=== PATIENT | female | born 1985 | race Caucasian/White ===

== ENCOUNTER 2019-12-22 11:27 | Outpatient (CLI) | payer OTHER, SELFPAY ==
--- NOTE | ~2019-12-22 | XR_ITS ---
XR chest 2V DATE: 12/22/2019 11:57 INDICATION: Shortness of breath TECHNIQUE: PA and lateral views COMPARISON: 03/21/2017 PA chest FINDINGS: Normal heart size. No hilar or mediastinal enlargement. No pulmonary infiltrate or consolid ation, pleural effusion or pulmonary vascular congestion or pneumothorax. IMPRESSION: Negative Reviewed, dictated and finalized at location A. IMPRESSION: Negative
[2019-12-22 12:29] LABS: Add Urine Microscopic? NO; Appearance Urine Clear (Clear); Bilirubin Urine Negative (Negative); Blood Urine Negative (Negative); Color Urine Colorless (Yellow); Glucose Urine UA Negative (Negative); Ketones Urine Negative (Negative); Leukocyte Esterase Ur Negative LEU/UL (Negative); Nitrate Urine Negative (Negative); Protein Urine Negative (Negative); Specific Grav Ur 1.006 (1.001-1.035); Urobilinogen Urine Negative mg/dL (<2.0)
[2019-12-22 12:35] LABS: Basophils Absolute Auto 0.1 K/mm3 (0.0-0.1); Basophils Percent Auto 0.7 % (0.2-1.2); Eosinophils Absolute Auto 0.3 K/mm3 (0-0.3); Eosinophils Percent Auto 3.2 % (0-4.4); Hematocrit 37.6 % (37.0-47.0); Hemoglobin 11.2 g/dL (12.0-15.0); Immature Granulocyte Absolute 0.03 K/mm3 (0.00-0.031); Immature Granulocyte Percent A 0.3 % (0-0.5); Lymphocytes Absolute Auto 1.99 K/mm3 (0.9-3.2); Lymphocytes Percent Auto 22.6 % (18.3-44.2); Mean Corpuscular HGB Conc 29.8 g/dl (32-36); Mean Corpuscular Hemoglobin 22.7 pg (26-34); Mean Corpuscular Volume 76.3 fl (80-100); Mean Platelet Volume 8.9 fl (7.4-10.4); Monocytes Absolute Auto 0.5 K/mm3 (0.1-0.6); Neutrophils Absolute Auto 5.9 K/mm3 (1.3-6.7); Neutrophils Percent Auto 67.2 % (45.5-73.1); Platelet Count Result 446 k/mm3 (150-375); Red Blood Count 4.93 M/mm3 (4.2-5.4); White Blood Count 8.8 K/mm3 (4.5-10.0)
[2019-12-22 12:39] LABS: Bacteria Urine Trace /hpf; RBC Urine 0-2 /hpf (0-2); Squamous Epithelial Cell Urine Few /hpf (Few); WBC Urine 0-3 /hpf
[2019-12-22 12:41] LABS: Alanine Aminotransferase 21 U/L (4-35); Albumin Level 4.7 g/dL (3.5-5.1); Alkaline Phosphatase 58 U/L (38-126); Anion Gap 9 mmol/L (8-16); Aspartate Amino Transferase 22 U/L (14-36); Bilirubin,Total 0.4 mg/dL (0.2-1.3); Blood Urea Nitrogen 15 mg/dL (7-17); Calcium 9.2 mg/dL (8.4-10.2); Carbon Dioxide 26 mmol/L (22-30); Chloride 101 mmol/L (98-107); Cholesterol 280 mg/dL (0-200); Estimated Glomerular Filt Rate > 60; Glucose 94 mg/dL (65-105); HDL Direct 82 mg/dL; Magnesium 1.7 mg/dL (1.6-2.3); Potassium 4.3 mmol/L (3.4-5.0); Sodium 136 mmol/L (137-145); Triglycerides 97 mg/dL (<150)
[2019-12-22 12:42] LABS: Hemoglobin A1C 4.6 % (<5.7)
[2019-12-22 12:53] LABS: LDL Cholesterol Direct 156 mg/dL
[2019-12-22 13:20] LABS: Vitamin D 25 Hydroxy 30.8 ng/mL
[2019-12-22 13:53] LABS: Folic Acid > 20.0 ng/mL (2.76->20)
== END 2019-12-22 11:28 | disposition home or self-care (01) ==
LOC: ANHIMG 11:38
PROVIDERS: PCP Family Medicine; Visit Provider Family Medicine
DX: Z00.00 Encounter for general adult medical examination without abnormal findings (principal); E66.9 Obesity, unspecified; Z13.9 Encounter for screening, unspecified; M79.7 Fibromyalgia; Z87.891 Personal history of nicotine dependence
CPT/HCPCS: 36415; 71046; 80053; 80061; 81003; 82306; 82607; 82746; 83036; 83735; 84443; 85025

== ENCOUNTER 2020-01-25 11:57 | Outpatient (CLI) | payer OTHER, SELFPAY ==
[2020-01-25 12:35] LABS: Hematocrit 36.7 % (37.0-47.0); Hemoglobin 11.8 g/dL (12.0-15.0)
== END 2020-01-25 11:58 | disposition home or self-care (01) ==
PROVIDERS: PCP Family Medicine
DX: D64.9 Anemia, unspecified (principal)
CPT/HCPCS: 36415; 85014; 85018

== ENCOUNTER 2020-03-14 07:05 | Outpatient (NON) | payer OTHER, SELFPAY ==
[2020-03-14 18:30] LABS: SARS-CoV-2 RNA PCR Negative
== END 2020-03-14 07:06 ==
PROVIDERS: PCP Family Medicine; Visit Provider Family Medicine
DX: R50.9 Fever, unspecified (principal); Z20.828 Contact with and (suspected) exposure to other viral communicable diseases
CPT/HCPCS: 87635; C9803; U0003

== ENCOUNTER 2020-04-01 13:59 | Outpatient (CLI) | payer OTHER, SELFPAY ==
[2020-04-01 15:00] LABS: Basophils Absolute Auto 0.1 K/mm3 (0.0-0.1); Basophils Percent Auto 0.8 % (0.2-1.2); Eosinophils Absolute Auto 0.1 K/mm3 (0-0.3); Eosinophils Percent Auto 1.6 % (0-4.4); Hematocrit 41.1 % (37.0-47.0); Hemoglobin 13.1 g/dL (12.0-15.0); Immature Granulocyte Absolute 0.02 K/mm3 (0.00-0.031); Immature Granulocyte Percent A 0.2 % (0-0.5); Immature Reticulocyte Fraction 22.2 % (3.0-15.9); Lymphocytes Absolute Auto 2.34 K/mm3 (0.9-3.2); Lymphocytes Percent Auto 26.5 % (18.3-44.2); Mean Corpuscular HGB Conc 31.9 g/dl (32-36); Mean Corpuscular Hemoglobin 25.7 pg (26-34); Mean Corpuscular Volume 80.6 fl (80-100); Mean Platelet Volume 9.4 fl (7.4-10.4); Monocytes Absolute Auto 0.4 K/mm3 (0.1-0.6); Monocytes Percent Auto 4.6 % (2.6-8.5); Neutrophils Absolute Auto 5.9 K/mm3 (1.3-6.7); Neutrophils Percent Auto 66.3 % (45.5-73.1); Nucleated Red Blood Cells Perc 0.2 % (0.0-0.2); Platelet Count Result 370 k/mm3 (150-375); Red Cell Distribution Width 12.8 % (11.5-14.5); Reticulocyte Hemoglobin Conten 29.4 pg (28.2-35.7); Reticulocyte Percent 1.56 % (0.7-4.3); Reticulocytes Absolute 0.08 B/L (32.2-175.7); White Blood Count 8.8 K/mm3 (4.5-10.0)
[2020-04-01 15:10] LABS: Alanine Aminotransferase 12 U/L (4-35); Albumin Level 4.8 g/dL (3.5-5.1); Alkaline Phosphatase 72 U/L (38-126); Anion Gap 10 mmol/L (8-16); Aspartate Amino Transferase 21 U/L (14-36); Bilirubin,Total 0.5 mg/dL (0.2-1.3); Blood Urea Nitrogen 9 mg/dL (7-17); Calcium 9.9 mg/dL (8.4-10.2); Carbon Dioxide 27 mmol/L (22-30); Chloride 101 mmol/L (98-107); Cholesterol 193 mg/dL (0-200); Estimated Glomerular Filt Rate > 60; Glucose 109 mg/dL (65-105); HDL Direct 60 mg/dL; Magnesium 1.9 mg/dL (1.6-2.3); Potassium 4.3 mmol/L (3.4-5.0); Sodium 138 mmol/L (137-145); Triglycerides 70 mg/dL (<150)
[2020-04-01 15:21] LABS: LDL Cholesterol Direct 101 mg/dL; Transferrin 322 mg/dL (206-381)
[2020-04-01 15:26] LABS: Iron 24 ug/dL (37-170)
[2020-04-04 11:24] LABS: Methylmalonic Acid 149 nmol/L (87-318)
[2020-04-04 12:49] LABS: Homocysteine 13.6 umol/L (<10.4)
[2020-04-04 18:18] LABS: Soluble Transferrin Receptor 3.04 mg/L (0.76-1.76)
== END 2020-04-01 14:00 | disposition home or self-care (01) ==
PROVIDERS: PCP Family Medicine; Referring Provider Obstetrics & Gynecology Gynecology
DX: E78.5 Hyperlipidemia, unspecified (principal); D50.8 Other iron deficiency anemias
CPT/HCPCS: 36415; 80053; 80061; 82607; 82728; 83090; 83516; 83540; 83735; 83921; 84238; 84466; 85025; 85046

== ENCOUNTER 2020-04-14 11:54 | Emergency (ER) | payer OTHER, SELFPAY ==
[2020-04-14] VITALS (14 sets, daily range): BP systolic 122–147; BP diastolic 82–114; PULSE 77–107; RESP 13–20; TEMP 36.4; O2SAT 97–100
--- NOTE | ~2020-04-14 | CT_ITS ---
EXAMINATION: CT brain wo con DATE: 04/14/2020 13:41 INDICATION: Confusion. Right-sided body spasms. TECHNIQUE: Computed tomography (CT) of the head was performed without intravenous contrast. Sagittal and coronal reconstructions were performed. The mA was adjusted according to patient size. Iterative reconstruction technique was employed. The dose-length product was 605.33 mGy-cm. COMPARISON: head CT dated 01/25/2012 and MRI dated 02/09/2015 FINDINGS: No acute intracranial hemorrhage, acute infarction or abnormal extra axial fluid collection. Ventricl es are normal and symmetric. No mass/mass effect. Mild mucosal thickening the posterior right ethmoid air cells. The orbitsoutside and mastoid air cells are normal. IMPRESSION: 1. Normal brain. Reviewed, dictated and finalized at location A. LATOR CONSTRUCTOR IMPRESSION: 1. Normal brain.
--- NOTE | ~2020-04-14 | XR_ITS ---
EXAMINATION: XR chest 1V portable DATE: 04/14/2020 13:45 INDICATION: Weakness, confusion, right-sided spasms. TECHNIQUE: frontal view of the chest was obtained. COMPARISON: Chest radiograph dated 12/22/2019 FINDINGS: The lungs remain clear with no focal airspace opacities, pulmonary edema, pleural effusion or pneumot horax. The cardiomediastinal silhouette is normal. Visualized bones and soft tissues are unremarkable . IMPRESSION: 1. Normal chest radiograph. Reviewed, dictated and finalized at location A. OMETER TESTER IMPRESSION: 1. Normal chest radiograph.
--- NOTE | 2020-04-14 12:22 | ECG_ITS ---
Measurements Intervals [place] Rate: 99 P: 59 NH: 134 QRS: -18 QRSD: 93 T: 51 QT: 348 QTc: 448 Interpretive Statements SINUS RHYTHM MINIMAL Q WAVES- INFERIOR LEADS BORDERLINE T WAVE ABNORMALITY- ANTERIOR LEADS BORDERLINE ECG Electronically Signed On 04-14-2020 16:28:22 COMPOSITION PROFESSOR by Jeff Herron D.O.
--- NOTE | 2020-04-14 13:34 | ED.GENADULT ---
HPI - General Adult General Chief complaint: Unspecified Stated complaint: right sided spasms Time Seen by Provider: 04/14/20 12:17 Source: patient and family Mode of arrival: ambulatory Limitations: no limitations and altered mental status History of Present Illness HPI narrative: 34 years old white female complaining of vision abnormality including floating black spots across the visual field mainly on the left side, Sudden onset of cramps of the right side of her body and inability to move it, Loss of balance and confusion, Patient feels that she is out of it and generally weak, Patient cannot remember things. The above symptoms started last night and been intermittent since. Currently patient crying because she does not know what is going on and feeling confused. Related Data Home Medications Medication Instructions Recorded Confirmed acetaminophen [Tylenol Extra 04/14/20 Strength] atorvastatin 04/14/20 04/14/20 docusate sodium [Colace] PO 04/14/20 drospirenone (contraceptive) 04/14/20 [Slynd] duloxetine mg PO 04/14/20 lamotrigine 04/14/20 omeprazole 04/14/20 ondansetron 04/14/20 Allergies Allergy/AdvReac Type Severity Reaction Status Date / Time adhesive tape Allergy Mild RASH Verified 04/14/20 12:26 atropine Allergy Unknown Nausea Verified 04/14/20 12:26 dexamethasone Allergy Unknown Nausea Verified 04/14/20 12:26 meperidine Allergy Unknown Nausea Verified 04/14/20 12:26 methohexital [Brevital] Allergy Unknown y Verified 04/14/20 12:26 Review of Systems Review of Systems: Narrative: CONSTITUTIONAL: Denies fever, chills, or sweats. EYES: Denies visual changes, redness, or discharge. ENT: Denies rhinorrhea, congestion, sore throat, or otalgia. CARDIOVASCULAR: Denies chest pain, palpitations, or edema. RESPIRATORY: Denies cough or dyspnea. GASTROINTESTINAL: Denies abdominal pain, nausea, vomiting, or diarrhea. GENITOURINARY: Denies dysuria or hematuria. SKIN: Denies rash or itching. MUSCULOSKELETAL: Denies back pain, joint pain, or myalgia. NEUROLOGIC: Occipital headache with weakness PSYCHIATRIC: Denies anxiety or depression. [facility] Family History Family History Father Hypertension Family history of diabetes mellitus in first degree relative Mother Hypertension Family history of diabetes mellitus in first degree relative Social History Social History Gender identity (if verbalized by the patient): Female Exam Narrative: Exam Narrative: General appearance: Well-developed, well-nourished, patient's at the bedside Skin: Normal color Head: Normocephalic, nontraumatic Eyes: Clear conjunctiva, frequent blinking of the eyelids bilaterally ENT: Oropharynx normal, ears normal, nose normal Neck: Supple, nontender Chest and respiratory: Airway patent, no respiratory distress, no accessory muscle use Heart: Tachycardia Abdomen: Soft, nontender, no organomegaly, quiet bowel sounds Vascular: Normal peripheral pulses, normal capillary refill. Musculoskeletal: Normal range of motion, nontender back Neurologic: Alert and oriented ?3, IMPLEMENTATION SPECIALIST is normal as tested, no gross motor deficit Course Course Emergency Course: Stable Reevaluation(s) Reevaluation #1: Patient feeling much better, back to her normal status. Is able to stand up and walk around without any complaint. Date: 04/14/20 Time: 18:30 Vital Signs Vital signs: Vital Signs Temperature 36.4 C 04/14/20 12:10 Pulse Rate 102 H 04/14/20 12:10 Respiratory Rate 18 04/14/20 12:10 Blood Pressure 144/101 H 04/14/20 12:10 Pulse Oximetry 100 01
[2020-04-14 14:30] LABS: Add Urine Microscopic? YES; Appearance Urine Cloudy (Clear); Bilirubin Urine Negative (Negative); Blood Urine 3+ (Negative); Color Urine Yellow (Yellow); Glucose Urine UA Negative (Negative); Ketones Urine Negative (Negative); Leukocyte Esterase Ur Trace LEU/UL (Negative); Nitrate Urine Negative (Negative); Protein Urine 2+ mg/dL (Negative); RBC Urine >75 /hpf (0-2); Specific Grav Ur 1.025 (1.001-1.035); Squamous Epithelial Cell Urine Moderate /hpf (Few); Urobilinogen Urine Negative mg/dL (<2.0)
[2020-04-14 14:33] LABS: Basophils Absolute Auto 0.1 K/mm3 (0.0-0.1); Basophils Percent Auto 0.5 % (0.2-1.2); Eosinophils Absolute Auto 0.2 K/mm3 (0-0.3); Eosinophils Percent Auto 2.2 % (0-4.4); Hemoglobin 13.3 g/dL (12.0-15.0); Immature Granulocyte Absolute 0.03 K/mm3 (0.00-0.031); Immature Granulocyte Percent A 0.3 % (0-0.5); Lymphocytes Absolute Auto 1.74 K/mm3 (0.9-3.2); Lymphocytes Percent Auto 18.8 % (18.3-44.2); Mean Corpuscular HGB Conc 31.7 g/dl (32-36); Mean Corpuscular Hemoglobin 25.6 pg (26-34); Mean Corpuscular Volume 80.9 fl (80-100); Mean Platelet Volume 9.5 fl (7.4-10.4); Monocytes Absolute Auto 0.5 K/mm3 (0.1-0.6); Monocytes Percent Auto 4.9 % (2.6-8.5); Neutrophils Absolute Auto 6.8 K/mm3 (1.3-6.7); Neutrophils Percent Auto 73.3 % (45.5-73.1); Platelet Count Result 413 k/mm3 (150-375); Red Blood Count 5.19 M/mm3 (4.2-5.4); Red Cell Distribution Width 13.2 % (11.5-14.5); White Blood Count 9.2 K/mm3 (4.5-10.0)
[2020-04-14 14:44] LABS: INR 0.9; Partial Thromboplastin Time 30.3 SECONDS (22.3-36.8); Prothrombin Time 12.9 Seconds (11.1-14.7)
[2020-04-14 14:54] LABS: D Dimer 0.27 ug/mL (<0.48)
[2020-04-14 15:19] LABS: Alanine Aminotransferase 17 U/L (4-35); Albumin Level 4.7 g/dL (3.5-5.1); Alkaline Phosphatase 83 U/L (38-126); Anion Gap 9 mmol/L (8-16); Aspartate Amino Transferase 25 U/L (14-36); Bilirubin,Total 0.5 mg/dL (0.2-1.3); Blood Urea Nitrogen 14 mg/dL (7-17); Calcium 9.9 mg/dL (8.4-10.2); Carbon Dioxide 27 mmol/L (22-30); Chloride 102 mmol/L (98-107); Estimated CRCL calculation 92 ml/min; Estimated Glomerular Filt Rate > 60; Glucose 97 mg/dL (65-105); Potassium 4.3 mmol/L (3.4-5.0); Sodium 138 mmol/L (137-145)
[2020-04-14 15:19] LABS: Amphetamine Screen Urine Negative (Negative); Barbiturate Screen Urine Negative (Negative); Benzodiazepines Screen Urine Negative (Negative); Cannabinoid Screen Urine Positive (Negative); Cocaine Screen Urine Negative (Negative); Methadone Screen Urine Negative (Negative); Opiate Screen Urine Negative (Negative); Phencyclidine Screen Urine Negative (Negative)
[2020-04-14 15:30] LABS: Troponin I < 0.012 ng/mL (0.000-0.034)
[2020-04-14 16:09] LABS: Creatine Kinase 107 U/L (30-135)
[2020-04-14] MEDS: ONDANSETRON INJ 4 MG/2 ML VIAL IV PUSH (16:10)
[2020-04-14] MEDS: LORazepam INJ (*CRX) 2 MG/ML VIAL 1 MG IV PUSH (16:12)
[2020-04-14] MEDS: HYDROmorphone HCL INJ (*CRX) 1 MG/ML SYR 0.5 MG IV PUSH (16:15)
== END 2020-04-14 18:36 | disposition home or self-care (01) ==
PROVIDERS: Emergency Provider Emergency Medicine; PCP Family Medicine
DX: G43.909 Migraine, unspecified, not intractable, without status migrainosus (principal); F12.10 Cannabis abuse, uncomplicated; R94.31 Abnormal electrocardiogram [ECG] [EKG]
CPT/HCPCS: 36415; 70450; 71045; 80053; 80307; 81001; 81025; 82550; 84484; 85025; 85380; 85610; 85730; 87086; 87088; 93005; 96374; 96375; 99284; J1170; J2060; J2405

== ENCOUNTER 2020-09-06 11:10 | Outpatient (CLI) | payer OTHER, SELFPAY ==
[2020-09-06 11:49] LABS: Hemoglobin A1C 5.8 % (<5.7)
[2020-09-06 12:02] LABS: Beta HCG Quantitative < 2.39 mIU/ML
[2020-09-08 20:37] LABS: Prolactin 8.8 ng/mL (***)
[2020-09-09 05:19] LABS: Insulin Level Total 9.4 uIU/mL (<=19.6)
[2020-09-09 10:06] LABS: DHEA-Sulfate 290 mcg/dL (23-266)
[2020-09-09 13:05] LABS: Testosterone Total 32 ng/dL (2-45)
== END 2020-09-06 11:11 | disposition home or self-care (01) ==
PROVIDERS: PCP Family Medicine; Visit Provider Obstetrics & Gynecology Gynecology
DX: N64.52 Nipple discharge (principal); N91.2 Amenorrhea, unspecified; L63.9 Alopecia areata, unspecified
CPT/HCPCS: 36415; 82627; 83036; 83498; 83525; 84146; 84403; 84443; 84702

== ENCOUNTER 2020-09-24 14:20 | Outpatient (CLI) | payer OTHER, SELFPAY ==
[2020-09-24 14:59] LABS: Cholesterol 259 mg/dL (0-200); HDL Direct 58 mg/dL; Triglycerides 129 mg/dL (<150)
[2020-09-24 15:11] LABS: LDL Cholesterol Direct 132 mg/dL
[2020-09-24 16:01] LABS: Free T4 Free Thyroxine 0.95 ng/mL (0.78-2.19)
== END 2020-09-24 14:21 | disposition home or self-care (01) ==
PROVIDERS: PCP Family Medicine; Referring Provider Obstetrics & Gynecology Gynecology; Visit Provider Family Medicine
DX: E78.5 Hyperlipidemia, unspecified (principal); N64.3 Galactorrhea not associated with childbirth
CPT/HCPCS: 36415; 80061; 84439

== ENCOUNTER 2020-10-22 08:02 | Outpatient (CLI) | payer OTHER, SELFPAY | END 2020-10-22 08:03 | disposition home or self-care (01) | LOC: ANHAUDIO 08:03 | PROVIDERS: PCP Family Medicine; Visit Provider Nurse Practitioner Family | DX: R42 Dizziness and giddiness (principal) | CPT/HCPCS: 92537; 92540; 92546; 92557; 92567 ==

== ENCOUNTER 2020-11-09 12:29 | Emergency (ER) | payer OTHER, SELFPAY ==
[2020-11-09 12:40] VITALS: BP 126/91; PULSE 97; RESP 20; TEMP 36.4; O2SAT 99
--- NOTE | 2020-11-09 12:54 | ED.GENADULT ---
HPI - General Adult General Chief complaint: Skin/Abscess/Foreign Body Stated complaint: Abscess on Lt breast Source: patient Mode of arrival: ambulatory Limitations: no limitations History of Present Illness HPI narrative: Pleasant 35 y/o female. PMHx includes MDD, GERD, HLD. Presents to [facility] today with acute complaints of redness and abscess located to LT breast. Pt reports to have initially noted the area approximately 1 week ago. She has since experienced increased warmth and pain to site. Client adds that area had spontaneously ruptured last HS, and was draining 'yellow' discharge. She has been seen by her OPERATIONAL COMMUNICATION CHIEF earlier in the week and told to monitor the area, but now area is 'much worse'. No fever, chills. No global breast pain or swelling. No nipple discharge, discoloration, or inversion. There has been no breast trauma relayed. No additional areas of integumentary involvement. She is not actively breast feeding. Related Data Home Medications Medication Instructions Recorded Confirmed drospirenone (contraceptive) 04/14/20 [Slynd] duloxetine mg PO 04/14/20 ondansetron 04/14/20 cyclobenzaprine 10 mg PO Q12H PRN 11/09/20 11/09/20 lamotrigine 200 mg PO DAILY 11/09/20 11/09/20 meloxicam 7.5 mg PO DAILY PRN 11/09/20 11/09/20 metoprolol succinate 50 mg PO DAILY 11/09/20 11/09/20 Allergies Allergy/AdvReac Type Severity Reaction Status Date / Time adhesive tape Allergy Mild RASH Verified 11/09/20 12:55 methohexital [Brevital] Allergy Unknown y Verified 04/14/20 12:26 atropine AdvReac Unknown Nausea Verified 11/09/20 12:55 dexamethasone AdvReac Unknown Nausea Verified 11/09/20 12:55 meperidine AdvReac Unknown Nausea Verified 11/09/20 12:55 Review of Systems Review of Systems: CONSTITUTIONAL: Denies fever, chills, sweats. EYES: Denies visual changes, redness, discharge. ENT: Denies rhinorrhea, congestion, sore throat, otalgia. CARDIOVASCULAR: Denies chest pain, palpitations, edema. RESPIRATORY: Denies dyspnea, wheezing, cough GASTROINTESTINAL: Denies abdominal pain, nausea, vomiting, diarrhea. GENITOURINARY: Denies dysuria, hematuria, abnormal discharge SKIN: Redness and abscess LT breast. MUSCULOSKELETAL: Denies acute back pain, joint pain, or myalgia. NEUROLOGIC: Denies numbness, or focal weakness. PSYCHIATRIC: Denies anxiety or depression. All systems reviewed & are unremarkable except as noted in HPI and below PMFSH Family History Family History Father Hypertension Family history of diabetes mellitus in first degree relative Mother Hypertension Family history of diabetes mellitus in first degree relative Social History Social History Gender identity (if verbalized by the patient): Female Exam Narrative: GENERAL: This is a well-nourished, well-developed patient, in no apparent distress. HEAD: normocephalic, atraumatic. EYES: Sclera clear/white. EARS: External ears normal. NOSE: External nose normal. THROAT: Mucous membranes moist. NECK: Neck supple, non-tender without lymphadenopathy, masses or thyromegaly. CARDIOVASCULAR: Regular rate and rhythm without murmurs, gallops, or rubs. RESPIRATORY: Clear to auscultation. Breath sounds equal bilaterally. No wheezes, rales, or rhonchi. GASTROINTESTINAL: Abdomen soft, non-tender, nondistended. SKIN: 3 cm area of left breast erythema and minimal yellow dries discharge. This area is located along the 12 0'clock position, at the upper left areola line. There is mild warmth. No fluctuance. Nipple is of normal color, I do not appreciate nipple discharge or inversion. Client exhibits appropriate sensory response to area. Remainder of integumentary exam is negative. NEURO: No focal neurologic deficits. Course Course Emergency Course: -Physical exam findings consistent with LT breast cellulitic changes, 12 O'Clock po
== END 2020-11-09 12:58 | disposition home or self-care (01) ==
PROVIDERS: Emergency Provider Nurse Practitioner Adult Health; PCP Family Medicine
DX: N61.0 Mastitis without abscess (principal); K21.9 Gastro-esophageal reflux disease without esophagitis; E78.5 Hyperlipidemia, unspecified; F32.9 Major depressive disorder, single episode, unspecified
CPT/HCPCS: 99213; G0463

== ENCOUNTER 2021-06-09 09:12 | Outpatient (CLI) | payer OTHER, SELFPAY ==
[2021-06-09 09:52] LABS: Hematocrit 41.2 % (37.0-47.0); Hemoglobin 12.5 g/dL (12.0-15.0); Immature Reticulocyte Fraction 30.2 % (3.0-15.9); Mean Corpuscular HGB Conc 30.3 g/dl (32-36); Mean Corpuscular Hemoglobin 23.9 pg (26-34); Mean Corpuscular Volume 78.6 fl (80-100); Platelet Count Result 437 k/mm3 (150-375); Red Blood Count 5.24 M/mm3 (4.2-5.4); Red Cell Distribution Width 16.1 % (11.5-14.5); Reticulocyte Hemoglobin Conten 28.7 pg (28.2-35.7); Reticulocyte Percent 1.99 % (0.7-4.3); White Blood Count 11.6 K/mm3 (4.5-10.0)
[2021-06-09 10:04] LABS: Alanine Aminotransferase 24 U/L (4-35); Albumin Level 4.8 g/dL (3.5-5.1); Alkaline Phosphatase 88 U/L (38-126); Anion Gap 9 mmol/L (8-16); Aspartate Amino Transferase 24 U/L (14-36); Bilirubin,Total 0.5 mg/dL (0.2-1.3); Blood Urea Nitrogen 11 mg/dL (7-17); Calcium 9.1 mg/dL (8.4-10.2); Carbon Dioxide 22 mmol/L (22-30); Chloride 104 mmol/L (98-107); Cholesterol 280 mg/dL (0-200); Estimated Glomerular Filt Rate > 60; Glucose 126 mg/dL (65-110); HDL Direct 47 mg/dL; Potassium 4.2 mmol/L (3.4-5.0); Sodium 135 mmol/L (137-145); Triglycerides 158 mg/dL (<150)
[2021-06-09 10:16] LABS: Hemoglobin A1C 5.6 % (<5.7); LDL Cholesterol Direct 177 mg/dL
[2021-06-09 10:28] LABS: Iron 37 ug/dL (37-170)
[2021-06-09 10:34] LABS: Thyroid Stimulating Hormone 0.741 uIU/mL (0.465-4.680)
[2021-06-09 10:36] LABS: Cortisol Random 0.95 ug/dL
[2021-06-09 10:37] LABS: Percent Iron Saturation 9 % (20-50)
[2021-06-09 11:10] LABS: Folic Acid 4.3 ng/mL (2.76->20)
[2021-06-12 03:31] LABS: Insulin Level Total 19.9 uIU/mL (<=19.6)
[2021-06-12 04:16] LABS: FSH 6.5 mIU/mL (***); LH 7.6 mIU/mL (***); Progesterone 0.5 ng/mL (***); Triiodothyronine T3 Free 2.4 pg/mL (2.3-4.2)
[2021-06-12 13:48] LABS: Thyroid Stimulating Immunoglob <89 % baseline (<140)
[2021-06-13 04:49] LABS: Thyroid Peroxidase Antibodies <1 IU/mL (<9)
[2021-06-13 17:25] LABS: Testosterone Free 4.2 pg/mL (0.1-6.4); Testosterone Total 27 ng/dL (2-45)
[2021-06-15 14:46] LABS: Estradiol, Ultrasensitive 152 pg/mL
== END 2021-06-09 09:13 | disposition home or self-care (01) ==
LOC: ANHLAB 09:14
PROVIDERS: PCP Family Medicine; Visit Provider Internal Medicine Endocrinology, Diabetes & Metabolism
DX: R63.5 Abnormal weight gain (principal); E03.9 Hypothyroidism, unspecified; R53.83 Other fatigue; N92.6 Irregular menstruation, unspecified; R73.03 Prediabetes
CPT/HCPCS: 36415; 80053; 80061; 82533; 82607; 82670; 82728; 82746; 83001; 83002; 83036; 83525; 83540; 83550; 84144; 84146; 84402; 84403; 84439; 84443; 84445; 84481; 85027; 85046; 86376

== ENCOUNTER 2021-06-12 10:14 | Outpatient (CLI) | payer OTHER, SELFPAY ==
--- NOTE | ~2021-06-12 | US_ITS ---
EXAMINATION: US thyroid EXAM DATE: 06/12/2021 10:45 INDICATION: Hypothyroidism. TECHNIQUE: Multiple grayscale and Doppler images of the thyroid were obtained (by a technologist who performed the scan) and subsequently reviewed. Individual nodules and recommendations may be reporte d in accordance with TI-RADS system as designated by the 2017 ACR White Paper TI-RADS committee. The re is no prior study for comparison. FINDINGS: Right thyroid lobe measures 4.9 x 1.4 x 1.5 cm, the left measuring 3.9 x 1.4 x 1.3 cm. There is homog eneous thyroid echogenicity. Dimensions within expected limits. No focal nodule identified. IMPRESSION: 1. Unremarkable thyroid ultrasound exam. Reviewed, dictated and finalized at location B. R SAMPLER
== END 2021-06-12 10:15 | disposition home or self-care (01) ==
PROVIDERS: PCP Family Medicine; Visit Provider Internal Medicine Endocrinology, Diabetes & Metabolism
DX: E03.9 Hypothyroidism, unspecified (principal)
CPT/HCPCS: 76536

== ENCOUNTER 2021-10-03 14:09 | Outpatient (CLI) | payer OTHER, SELFPAY ==
--- NOTE | 2021-10-03 | ECG_ITS ---
Measurements Intervals [place] Rate: 72 P: 37 DE: 151 QRS: 9 QRSD: 84 T: 1 QT: 380 QTc: 417 Interpretive Statements SINUS RHYTHM NORMAL ECG COMPARED TO ECG 04/14/2020 12:24:44 MINOR T-WAVE ABNORMALITY IS NOW RESOLVED Electronically Signed On 10-03-2021 16:56:08 CDT by Matthew Figueroa M.D.
--- NOTE | ~2021-10-03 | XR_ITS ---
EXAMINATION: XR lumbar spine min 4V DATE: 10/03/2021 14:58 INDICATION: Back pain TECHNIQUE: Anteroposterior, lateral, and bilateral oblique views of the lumbar spine, and cone-down l ateral view of the lumbosacral junction were obtained. COMPARISON: None. FINDINGS: There is no fracture, dislocation, or subluxation. The vertebral body heights, alignment, a nd intervertebral disc spaces are normal. The paravertebral soft tissues are unremarkable. There is m ild facet osteoarthritis of the lower lumbar spine. IMPRESSION: 1. Mild lumbar spondylosis without acute findings. Reviewed, dictated and finalized at location F.
--- NOTE | ~2021-10-03 | XR_ITS ---
EXAMINATION: XR thoracic spine 3V DATE: 10/03/2021 14:58 INDICATION: Thoracic back pain TECHNIQUE: AP, lateral and lateral swimmer's views of the thoracic spine were obtained. COMPARISON: None. FINDINGS: There is no fracture, dislocation, or subluxation. The vertebral body heights, alignment, a nd intervertebral disc spaces are normal. The paravertebral soft tissues are unremarkable. IMPRESSION: 1. No acute osseous abnormality. Reviewed, dictated and finalized at location F.
[2021-10-03 15:49] LABS: Basophils Absolute Auto 0.1 K/mm3 (0.0-0.1); Basophils Percent Auto 0.6 % (0.2-1.2); Eosinophils Absolute Auto 0.3 K/mm3 (0-0.3); Eosinophils Percent Auto 3.5 % (0-4.4); Hematocrit 33.8 % (37.0-47.0); Hemoglobin 9.8 g/dL (12.0-15.0); Immature Granulocyte Absolute 0.03 K/mm3 (0.00-0.031); Immature Granulocyte Percent A 0.3 % (0-0.5); Lymphocytes Absolute Auto 2.48 K/mm3 (0.9-3.2); Lymphocytes Percent Auto 26.2 % (18.3-44.2); Mean Corpuscular Hemoglobin 21.4 pg (26-34); Mean Corpuscular Volume 73.6 fl (80-100); Mean Platelet Volume 9.2 fl (7.4-10.4); Monocytes Absolute Auto 0.5 K/mm3 (0.1-0.6); Monocytes Percent Auto 5.7 % (2.6-8.5); Neutrophils Percent Auto 63.7 % (45.5-73.1); Platelet Count Result 395 k/mm3 (150-375); Red Blood Count 4.59 M/mm3 (4.2-5.4); Red Cell Distribution Width 16.4 % (11.5-14.5); White Blood Count 9.5 K/mm3 (4.5-10.0)
[2021-10-03 15:55] LABS: Appearance Urine Clear (Clear); Bilirubin Urine Negative (Negative); Blood Urine 2+ (Negative); Glucose Urine UA Negative (Negative); Ketones Urine Negative (Negative); Leukocyte Esterase Ur Negative LEU/UL (Negative); Nitrate Urine Negative (Negative); Protein Urine Negative (Negative); Specific Grav Ur 1.015 (1.001-1.035); Urobilinogen Urine 0.2 mg/dL (<2.0)
[2021-10-03 16:03] LABS: Squamous Epithelial Cell Urine Few /hpf (Few); WBC Urine 0-3 /hpf
[2021-10-03 16:05] LABS: Add Urine Microscopic? YES; Color Urine Light Yellow (Yellow)
[2021-10-03 16:06] LABS: Alanine Aminotransferase 17 U/L (6-35); Albumin Level 4.5 g/dL (3.5-5.1); Alkaline Phosphatase 72 U/L (38-126); Anion Gap 6 mmol/L (8-16); Aspartate Amino Transferase 20 U/L (14-36); Bilirubin,Total 0.1 mg/dL (0.2-1.3); Blood Urea Nitrogen 11 mg/dL (7-17); Carbon Dioxide 26 mmol/L (22-30); Chloride 105 mmol/L (98-107); Cholesterol 233 mg/dL (0-200); Estimated Glomerular Filt Rate > 60; Glucose 92 mg/dL (65-110); HDL Direct 51 mg/dL; Potassium 4.4 mmol/L (3.4-5.0); Sodium 137 mmol/L (137-145); Triglycerides 125 mg/dL (<150)
[2021-10-03 16:13] LABS: Iron 22 ug/dL (37-170)
[2021-10-03 16:17] LABS: LDL Cholesterol Direct 134 mg/dL
[2021-10-03 16:20] LABS: Hypochromasia 1+ (NORMAL); Platelet Estimate Increased (Adequate)
[2021-10-03 16:21] LABS: Microcytosis 1+ (NORMAL); Ovalocytes 1+ (NORMAL)
[2021-10-03 16:23] LABS: Percent Iron Saturation 5 % (20-50)
[2021-10-03 16:34] LABS: Total Triiodothyronine (T3) 1.16 NG/ML (0.97-1.69)
[2021-10-03 16:35] LABS: Free T4 Free Thyroxine 0.93 ng/mL (0.78-2.19)
[2021-10-03 16:44] LABS: Hemoglobin A1C 5.7 % (<5.7)
[2021-10-03 16:57] LABS: Vitamin D 25 Hydroxy 31.6 ng/mL
[2021-10-03 17:10] LABS: Folic Acid 2.6 ng/mL (2.76->20)
== END 2021-10-03 14:10 | disposition home or self-care (01) ==
PROVIDERS: PCP Family Medicine; Visit Provider Internal Medicine Endocrinology, Diabetes & Metabolism
DX: Z00.00 Encounter for general adult medical examination without abnormal findings (principal); E03.9 Hypothyroidism, unspecified; D50.9 Iron deficiency anemia, unspecified; E53.8 Deficiency of other specified B group vitamins; E66.9 Obesity, unspecified; Z13.9 Encounter for screening, unspecified; R00.0 Tachycardia, unspecified; M54.50 Low back pain, unspecified; M47.896 Other spondylosis, lumbar region
CPT/HCPCS: 36415; 72072; 72110; 80053; 80061; 81001; 82306; 82607; 82746; 83036; 83540; 83550; 84439; 84443; 84480; 85025; 93005

== ENCOUNTER 2022-04-07 09:55 | Outpatient (CLI) | payer OTHER, SELFPAY ==
--- NOTE | ~2022-04-07 | NM_ITS ---
EXAM: NM gastric emptying study DATE: 04/07/2022 14:42 INDICATION: Upper abdominal pain, nausea, vomiting and early satiety TECHNIQUE: A gastric emptying study was performed using the methodology of Steve QIU, et al. J Nucl Med 2007; 48:568-572. The patient was given a meal consisting of 2 scrambled eggs labeled with 0.962 mCi Tc-99m sulfur colloid, 2 slices of toast, two packages of jam, and approximately 120 mL of water . Simultaneous anterior and posterior 1-min images of the abdomen were obtained with the patient supi ne at multiple time points over a total period of 4 hours. The geometric mean of anterior and posteri or views was determined, and the percentage retention was calculated for each time point. COMPARISON: None. FINDINGS: Gastric retention of the radiotracer-labeled meal was 84%, 59%, and 23% at the 1-hour, 2-hour, and 4- hour time points, respectively. With this technique, apparent rapid gastric emptying is suggested by <30% gastric retention at 1 hour. Delayed gastric emptying is defined by gastric retention of >90% at 1 hour, >60% retention at 2 hours, or >10% retention at 4 hours. IMPRESSION: 1. Delayed gastric emptying. Reviewed, dictated and finalized at location A. HOLOGY INSTRUCTOR
== END 2022-04-07 09:56 | disposition home or self-care (01) ==
LOC: ANHIMG 09:56
PROVIDERS: PCP Family Medicine; Visit Provider Nurse Practitioner
DX: K58.9 Irritable bowel syndrome, unspecified (principal); K21.9 Gastro-esophageal reflux disease without esophagitis; R10.10 Upper abdominal pain, unspecified; R11.2 Nausea with vomiting, unspecified; R68.81 Early satiety; K30 Functional dyspepsia
CPT/HCPCS: 78264; A9541

== ENCOUNTER 2022-06-30 00:45 | Day surgery (SDC) | payer OTHER, SELFPAY ==
[2022-04-28 10:55] VITALS: BMI 36.9
--- NOTE | 2022-06-22 13:43 | PC.NURSE ---
Confirmed new date and time for patients procedure. Patient stated she has no new medications or new medical hx.
[2022-06-30 11:41] VITALS: BP 141/99; PULSE 110; RESP 18; TEMP 36.6; O2SAT 98
[2022-06-30] MEDS: LACTATED RINGERS 1,000 ML 150 ML IV CONT (11:54)
--- NOTE | 2022-06-30 12:42 | WPDANESEPPF ---
Anes - Initial Pre Proc Eval Procedure: Operation Date: 06/30/22 13:00 Proposed Procedures p Esophagogastroduodenoscopy & Colonoscopy - Vinay Wu MD Date/Time: 06/30/22 12:42 Surgeon: Vinay Wu MD Pre Op Diagnosis: N&V GERD Early satiety, Colitis Patient Data Age: 37 Gender: F Height: 1.7 m Weight: 108.5 kg Last Vital Signs Temp 97.9 F 06/30/22 11:41 Pulse 110 H 06/30/22 11:41 Resp 18 06/30/22 11:41 BP 141/99 H 06/30/22 11:41 Pulse Ox 98 06/30/22 11:41 O2 Del Method Room Air 06/30/22 11:41 Allergies Allergy/AdvReac Type Severity Reaction Status Date / Time adhesive tape Allergy Mild RASH Verified 04/28/22 10:56 methohexital [Brevital] Allergy Unknown y Verified 04/28/22 10:56 Sulfa (Sulfonamide Allergy Rash Verified 06/30/22 11:39 Antibiotics) atropine AdvReac Unknown Nausea Verified 04/28/22 10:56 dexamethasone AdvReac Unknown Nausea Verified 04/28/22 10:56 meperidine AdvReac Unknown Nausea Verified 04/28/22 10:56 Home Medications Medication Instructions Recorded Confirmed Type ondansetron 4 mg disintegrating 4 mg PO Q6-8H PRN Nausea 04/14/20 06/22/22 History tablet metoprolol succinate 50 mg 50 mg PO DAILY 11/09/20 06/22/22 History tablet,extended release 24 hr dicyclomine 10 mg capsule 10 - 20 mg PO .every 6 hours PRN 03/12/22 06/22/22 Rx abdominal pain #120 caps metoclopramide HCl 10 mg tablet 10 mg PO Q6H #120 tabs 03/12/22 06/22/22 Rx (Reglan) pantoprazole 40 mg tablet,delayed 40 mg PO BID #60 tabs 03/12/22 06/22/22 Rx release levothyroxine 25 mcg tablet 25 mcg PO DAILY 04/28/22 06/22/22 History Patient hx anesthesia problems: none Family hx anesthesia problems: none Results Review: All pre-operative results and documents have been reviewed as part of the pre-operative evaluation. [facility] Past Medical History Medical History (Updated 03/12/22 @ 12:21 by Adriana Sterling APRN) Chronic pain Colitis Early satiety GERD (gastroesophageal reflux disease) IBS (irritable bowel syndrome) JOSE D (iron deficiency anemia) Marijuana abuse Nausea and vomiting Obesity Regurgitation of food Upper abdominal pain Surgical History Surgical History (Updated 03/12/22 @ 12:19 by Adriana Sterling APRN) History of repair of rectocele Family History Family History Father Hypertension Family history of diabetes mellitus in first degree relative Mother Hypertension Family history of diabetes mellitus in first degree relative Social History Social History Smoking status: Current every day smoker Tobacco type: cigarettes Substance use: current Substance use type: marijuana Last use: 2X weekly Living arrangements: with family Gender identity (if verbalized by the patient): Female Spiritual care concerns: No Anes - Eval Final PreProcedure Day of Procedure 06/30/22 12:42 Patient weight: obese Heart: regular rate and rhythm Lungs: clear to auscultation Airway: Mallampati scale class II Neurological: alert and oriented Last oral intake: >/= 8 hours ASA classification: III Emergent: no Anesthetic plan: proceed Anesthesia type and monitoring: general GIVS and standard monitoring Results Review: All pre-operative results and documents have been reviewed as part of the pre-operative evaluation. Informed Consent: The patient's anesthetic plan and its attendant risks and benefits were discussed with the patient/family/POA. Questions were solicited and answers provided to the satisfaction of the patient/family/POA.
--- NOTE | 2022-06-30 13:04 | PM.HPGS ---
History of Present Illness History of Present Illness Consent: Risks, benefits, and alternatives have been discussed and questions answered. Patient agrees to proceed with procedure. Chief complaint: N&V GERD Early satiety, Colitis Narrative: Nancy Liu is a 37 year old female with nausea for years but lately worse, also had abdominal pain several weeks ago, ER evaluation showed possible colitis in CT scan, she had egd/colonoscopy 2020 when had anemia Review of Systems Constitutional: Constitutional: Denies headache(s) and Denies weakness Eyes: Eyes: Denies blurry vision ENT: Reports Normal hearing present, Denies headache(s) and Denies neck pain Cardiovascular: Cardiovascular: Denies chest pain and Denies dyspnea Respiratory: Respiratory: Denies dyspnea Gastrointestinal: Gastrointestinal: Reports no additional gastrointestinal complaints Genitourinary: Genitourinary: Denies dysuria Musculoskeletal: Musculoskeletal: Denies neck pain Integumentary/Breasts: Skin/Breast: Denies dry skin Neurologic: Reports Normal hearing present, Denies headache(s) and Denies weakness Psychiatric: Psychiatric: Denies anxiety Endocrine: Endocrine: Denies change in body appearance Hematologic/Lymphatic: Hematologic/Lymphatic: Denies easy bleeding Allergic/Immunologic: Allergic/Immunologic: Denies urticaria PMFSH Past Medical History Medical History (Updated 03/12/22 @ 12:21 by Adriana Sterling APRN) Chronic pain Colitis Early satiety GERD (gastroesophageal reflux disease) IBS (irritable bowel syndrome) JOSE D (iron deficiency anemia) Marijuana abuse Nausea and vomiting Obesity Regurgitation of food Upper abdominal pain Surgical History Surgical History (Updated 03/12/22 @ 12:19 by Adriana Sterling APRN) History of repair of rectocele Family History Family History Father Hypertension Family history of diabetes mellitus in first degree relative Mother Hypertension Family history of diabetes mellitus in first degree relative Social History Social History Smoking status: Current every day smoker Tobacco type: cigarettes Substance use: current Substance use type: marijuana Last use: 2X weekly Living arrangements: with family Gender identity (if verbalized by the patient): Female Spiritual care concerns: No Meds Home Medications and Allergies Home Medications Medication Instructions Recorded Confirmed Type ondansetron 4 mg disintegrating 4 mg PO Q6-8H PRN Nausea 01/03/21 03/13/23 History tablet metoprolol succinate 50 mg 50 mg PO DAILY 11/09/20 06/22/22 History tablet,extended release 24 hr dicyclomine 10 mg capsule 10 - 20 mg PO .every 6 hours PRN 03/12/22 06/22/22 Rx abdominal pain #120 caps metoclopramide HCl 10 mg tablet 10 mg PO Q6H #120 tabs 03/12/22 06/22/22 Rx (Reglan) pantoprazole 40 mg tablet,delayed 40 mg PO BID #60 tabs 03/12/22 06/22/22 Rx release levothyroxine 25 mcg tablet 25 mcg PO DAILY 04/28/22 06/22/22 History Allergies Allergy/AdvReac Type Severity Reaction Status Date / Time adhesive tape Allergy Mild RASH Verified 04/28/22 10:56 methohexital [Brevital] Allergy Unknown y Verified 04/28/22 10:56 Sulfa (Sulfonamide Allergy Rash Verified 06/30/22 11:39 Antibiotics) atropine AdvReac Unknown Nausea Verified 04/28/22 10:56 dexamethasone AdvReac Unknown Nausea Verified 04/28/22 10:56 meperidine AdvReac Unknown Nausea Verified 04/28/22 10:56 Vital Signs Vital Signs - 24 hr 06/30/22 11:41 Temperature 97.9 F Pulse Rate 110 H Respiratory Rate 18 Blood Pressure 141/99 H Pulse Oximetry 98 Oxygen Delivery Room Air Exam Const: General: comfortable and no acute distress HENMT: Face/Nose/Sinus: Normal nares present Eyes: General: appearance normal, both eyes and all related structures Neck: Neck: no JVD
--- NOTE | 2022-06-30 13:28 | SUR.OPER ---
EGD: [id number] COLON: [id number]
[2022-06-30 13:33] VITALS: BP 108/64; PULSE 68; RESP 18; O2SAT 100
[2022-06-30 13:43] VITALS: BP 105/70; PULSE 63; RESP 15; O2SAT 99
[2022-06-30 13:53] VITALS: BP 117/76; PULSE 65; RESP 15; O2SAT 98
== END 2022-06-30 14:01 | disposition home or self-care (01) ==
PROVIDERS: PCP Family Medicine; Visit Provider Internal Medicine Gastroenterology
PROC: 0DJ08ZZ Inspection of Upper Intestinal Tract, Via Natural or Artificial Opening Endoscopic (ICD-10-PCS; CPT 43235; principal; 2022-06-30 13:00)
DX: K58.9 Irritable bowel syndrome, unspecified (principal); K64.8 Other hemorrhoids; K31.7 Polyp of stomach and duodenum; R10.30 Lower abdominal pain, unspecified; F17.210 Nicotine dependence, cigarettes, uncomplicated; F12.90 Cannabis use, unspecified, uncomplicated
CPT/HCPCS: 45378; 43239; 88305; J2704; J7120

== ENCOUNTER 2024-02-17 10:04 | Outpatient (CLI) | payer OTHER, SELFPAY ==
--- NOTE | ~2024-02-17 | XR_ITS ---
Lumbosacral Spine: AP, oblique, and lateral views Clinical History: Pain COMPARISON: 10/03/2021 Findings: 6 lumbar type vertebral bodies are present. The normal lordotic curve is maintained. The v ertebral bodies and posterior elements are intact. Mild facet arthropathy present throughout the levi mbar spine. There is mild degenerative disc narrowing at L5-S1. The sacroiliac joints are normally ou tlined. Impression: Minimal degenerative change, as above. Reviewed, dictated and finalized at location M. IL MANAGER Impression: Minimal degenerative change, as above.
--- NOTE | ~2024-02-17 | XR_ITS ---
Left wrist Technique: PA, oblique, lateral, and ulnar deviation views were obtained. Clinical History: Pain Findings: No acute fracture or dislocation is seen. Osseous alignment is anatomic. Joint spaces are p reserved. Soft tissues are unremarkable. Impression: Unremarkable left wrist radiographs. Reviewed, dictated and finalized at location . GHT WEIGHER Impression: Unremarkable left wrist radiographs.
--- NOTE | ~2024-02-17 | XR_ITS ---
Right Hand Technique: PA, oblique, and lateral views were obtained. Clinical History: Pain Findings: No acute fracture or dislocation is seen. Osseous alignment is anatomic. Joint spaces are p reserved. Soft tissues are unremarkable. Impression: Unremarkable right hand. Reviewed, dictated and finalized at location M. ISION OPTICS TECHNICIAN Impression: Unremarkable right hand.
--- NOTE | ~2024-02-17 | XR_ITS ---
Left Hand Technique: PA, oblique, and lateral views were obtained. Clinical History: Pain Findings: No acute fracture or dislocation is seen. Osseous alignment is anatomic. Joint spaces are p reserved. Soft tissues are unremarkable. Impression: Unremarkable left hand. Reviewed, dictated and finalized at location M. CLASS MODEL Impression: Unremarkable left hand.
--- NOTE | ~2024-02-17 | XR_ITS ---
Right wrist Technique: PA, oblique, lateral, and ulnar deviation views were obtained. Clinical History: Pain Findings: No acute fracture or dislocation is seen. Osseous alignment is anatomic. Joint spaces are p reserved. Soft tissues are unremarkable. Impression: Unremarkable right wrist radiographs. Reviewed, dictated and finalized at location . ETING STRATEGIST Impression: Unremarkable right wrist radiographs.
== END 2024-02-17 10:05 | disposition home or self-care (01) ==
PROVIDERS: PCP Family Medicine; Visit Provider Family Medicine
DX: M54.50 Low back pain, unspecified (principal); M79.641 Pain in right hand; M79.642 Pain in left hand
CPT/HCPCS: 72110; 73110; 73130

== ENCOUNTER 2024-09-20 14:12 | Outpatient (CLI) | payer OTHER, SELFPAY ==
[2024-09-20 15:22] LABS: Hematocrit 46.9 % (37.0-47.0); Hemoglobin 15.1 g/dL (12.0-15.0); Mean Corpuscular HGB Conc 32.2 g/dl (32-36); Mean Corpuscular Hemoglobin 27.6 pg (26-34); Mean Corpuscular Volume 85.7 fl (80-100); Mean Platelet Volume 9.9 fl (7.4-10.4); Platelet Count Result 351 k/mm3 (150-375); Red Blood Count 5.47 M/mm3 (4.2-5.4); Red Cell Distribution Width 13.9 % (11.5-14.5); White Blood Count 8.6 K/mm3 (4.5-10.0)
[2024-09-20 15:35] LABS: Cholesterol 253 mg/dL (0-200); HDL Direct 50 mg/dL; Triglycerides 167 mg/dL (<150)
[2024-09-20 15:45] LABS: Alanine Aminotransferase 33 U/L (6-35); Alkaline Phosphatase 65 U/L (38-126); Anion Gap 11 mmol/L (4-12); Aspartate Amino Transferase 32 U/L (14-36); Bilirubin,Total 0.4 mg/dL (0.2-1.3); Blood Urea Nitrogen 10 mg/dL (7-17); CRP 1.2 mg/dL (<1.0); Calcium 10.1 mg/dL (8.4-10.2); Carbon Dioxide 25 mmol/L (22-30); Chloride 101 mmol/L (98-107); Estimated Glomerular Filt Rate 54; Glucose 93 mg/dL (65-110); Potassium 4.8 mmol/L (3.4-5.0); Sodium 137 mmol/L (137-145); Total Protein 8.8 g/dL (6.3-8.2)
[2024-09-20 15:46] LABS: LDL Cholesterol Direct 153 mg/dL
[2024-09-20 15:54] LABS: Erythrocyte Sedimentation Rate 8 mm/hr (0-20)
--- OUTSIDE RECORDS SUMMARY | 2024-09-20 17:04 | XMS_ITS | CONTINUITY OF CARE DOCUMENT ---
Author Name mp gresham Address Unknown Organization [facility] Address [address] [place] [address] Phone [phone] Care Team Providers Care Vac Press Operator Name Role Phone Hong GILES, Donald Unavailable [phone] MIRANDA WADE MD Unavailable MIRANDA WADE MD Unavailable PROBLEMS Condition Status Date Provider Notes Tachycardia active Petar Jacob MD Chest pain active Donald Pitts MD HTN essential active Morenita Cross NP Nausea active Petar Jacob MD Shortness of breath active Petar Jacob MD GERD active Petar Jacob MD Anxiety active Petar Jacob MD Renal stone active Petar Jacob MD Bipolar disorder active Petar Jacob MD h/o Pulmonary embolism active Petar Jacob MD Obesity active Petar Jacob MD TOBACCO ABUSE-QUIT active Petar Jacob MD Anemia, iron deficiency active Petar Jacob MD Hyperlipidemia active Petar Jacob MD Family History of Hypertension: completed - Morenita Cross NP Family History of Hyperlipidemia: completed - Morenita Cross NP Family History of Hypertension: completed - Morenita Cross NP Family History of Hyperlipidemia: completed - Morenita Cross ARCHITECTURAL ASSOCIATE ENCOUNTERS Date Type Provider Location Encounter Diag nosis - In-person encounter Office Visit Donald Pitts MD [facility] Chest pain - In-person encounter Office Visit Donald Pitts MD [facility] - In-person encounter Office Visit Petra Jacob MD [facility] - In-person encounter Office Visit Petar Jacob MD [facility] - In-person encounter Office Visit Petar Jacob MD [facility] Family History of Hyperlipidemia:Family History of Hypertension:Family History of Hyperlipidemia:Family History of Hypertension:HTN essential - In-person encounter Office Visit Petar Jacob MD [facility] TachycardiaHyperlipidemiaAnemia , iron deficiencyTOBACCO ABUSE-QUITObesityh/o Pulmonary embolismBipolar disorderRenal stoneAnxietyGERDShortness of breathNausea VITAL SIGNS Date Observation Value Provider Body Mass Index (Ratio) 35.71 kg/m2 Alfredo Pitts MD blood pressure, cuff size regular Garo blood pressure, diastolic 90 mm[Hg] [facility] blood pressure, systolic 148 mm[Hg] [facility] pulse rate 93 /min Kelby respiratory rate E&M 16 /min Kelby oxygen saturation, oximetry 98 % Kelby weight E&M 228 [lb_av] [place] height E&M 67 [in_i] Kelby weight E&M 240 [lb_av] Merline Staufferd Body Mass Index (Ratio) 37.59 kg/m2 Aisha Jacob MD blood pressure, diastolic 76 mm[Hg] Guerita nkLogic blood pressure, systolic 140 mm[Hg] Cee kLogic blood pressure, diastolic 76 mm[Hg] Sabrina kulkarni Ez blood pressure, systolic 140 mm[Hg] Valentin kenny Hui oxygen saturation, oximetry 99 % Ruby Ventimiglia GLUING MACHINE FEEDER pulse rate 130 /min Ramona robertson weight E&M 240 [lb_av] Ramona robertson respiratory rate E&M 16 /min Kallie Hui blood pressure, cuff size large Sabrina shad Hui height E&M 67 [in_i] Ramona robertson Body Mass Index (Ratio) 41.34 kg/m2 Aisha Jacob MD blood pressure, cuff size regular Cy yani Sweeney blood pressure, diastolic 80 mm[Hg] Cy yani Sweeney blood pressure, systolic 128 mm[Hg] Saba elise Sweeney pulse rate 87 /min Kandielise Vazquezbel l respiratory rate E&M 16 /min Kandi Sweeney oxygen saturation, oximetry 98 % Kandi Sweeney weight E&M 264 [lb_av] Kandi Campbel l height E&M 67 [in_i] Kandi Campbel l Body Mass Index (Ratio) 40.72 kg/m2 Aisha Jacob MD blood pressure, cuff size large Ke rri Alfuenemorgan blood pressure, diastolic 84 mm[Hg] Ke rri Alfuenemorgan blood pressure, systolic 120 mm[Hg] Ker ri Michael oxygen saturation, oximetry 98 % Mirta Whitakerelder respiratory rate E&M 16 /min Mirta Hidlago izzyenenfelder pulse rate 108 /min Mirta Hines lder weight E&M 260 [lb_av] Mirta Whitakere lder height E&M 67 [in_i] Mirta Whitakere lder Body Mass Index (Ratio) 40.09 kg/m2 Aisha Jacob MD blood pressure, cuff size large Ke rri Gruenenfelder blood pressure, diastolic 110 mm[Hg] Ke rri Gruenenfelder blood pressure, systolic 140 mm[Hg] Lex Fosternealexandroelder oxygen saturation, oximetry 98 % Mirta Whitakerelder respiratory rate E&M 18 /min Mirta Hidalgo izzyjeremiahnfelder pulse rate 136 /min Mirta Hines lder weight E&M 256 [lb_av] Mirta Milnerrobdavey lder height E&M 67 [in_i] Mirta Hines er ALLERGIES No Known Drug Allergies HISTORY OF MEDICATION USE Medication Status Instructions Dates Provider Indications Com ments metoprolol succinate 100 mg tablet extended release 24 hr active Take 1 tablet by mouth once daily Donald Pitts MD metoprolol succinate 100 mg tablet extended release 24 hr completed Take 1 tablet by mouth once a day - Donald Pitts MD metoclopramide HCl 10 mg tablet active Ruby Ventimiglia GLUING MACHINE FEEDER dicyclomine 10 mg capsule active TAKE 1 TO 2 CAPSULES BY MOUTH EVERY 6 HOURS NEEDED FOR ABDOMINAL PAIN Ruby Ventimiglia GLUING MACHINE FEEDER Synthroid 25 mcg tablet active TAKE 1 TABLET BY MOUTH ONCE A DAY Ruby Ventimiglia GLUING MACHINE FEEDER metoprolol succinate 100 mg tablet extended release 24 hr completed Take 1 tablet by mouth once daily - Ramona Hui Slynd 4 mg (28) tablet completed once a day - Ruby Ventimiglia GLUING MACHINE FEEDER metoprolol succinate 50 mg tablet extended release 24 hr completed one tab. daily - Kari Rushing atorvastatin 10 mg tablet completed Take 1 tablet by mouth every night - Ruby Ventimiglia GLUING MACHINE FEEDER #30, 30 days supply, Prescribed by MIRANDA WADE, Filled 04/03/2020 ACID CONTROL MAXIMUM STRENGTH 20 MG TABS completed Take 1 every night - Rubyandrew Chumiglia GLUING MACHINE FEEDER omeprazole 40 mg capsule,delayed release(/EC) completed Take 1 capsule by mouth every morning - Ruby Ventimiglia GLUING MACHINE FEEDER #30, 30 days supply, Prescribed by MIRANDA WADE, Filled 04/03/2020 duloxetine 60 mg capsule,delayed release(/EC) completed Take 1 capsule by mouth once a day - Ruby Ventimiglia GLUING MACHINE FEEDER #30, 30 days supply, Prescribed by SAL CAMACHO, Filled 04/02/2020 FOLIC ACID 1 MG ORAL TABLET completed TAKE 1 TABLET BY MOUTH ONCE DAILY DIRECTED - Mirta Rodriguez #30, 30 days supply, Prescribed by MIRANDA WADE, Filled 03/06/2020 ondansetron 4 mg tablet,disintegr ating active Dissolve 1 tablet by mouth every six to eight hours as needed Mirta Condeer #28, 7 days supply, Prescribed by MIRANDA WADE, Filled 03/12/2020 lamotrigine 150 mg tablet completed Take 1 tablet by mouth every night - Ruby Ventimiglia GLUING MACHINE FEEDER #30, 30 days supply, Prescribed by SAL CAMACHO, Filled 04/02/2020 ZOFRAN TABLET completed as needed - Ruby Ventimiglia GLUING MACHINE FEEDER SOCIAL HISTORY Date Observation Value Provider drug use no Gabriel Merritt alcohol use no Gabriel Merritt smoking, year quit 2019 Gabriel causey number of years as a smoker 8 a Gabriel Merritt smoking history, tot al pack/day 4 Gabriel Merritt cigarette use yes Gabriel Merritt smoking status Current every da y smoker Gabriel Merritt social history reviewed E&M revi ewed - no changes required Donald Pitts MD drug use no Ruby Ventimig salazar [facility] alcohol use no Ruby Ventimig salazar [facility] smoking, year quit 2019 Ramona Hui number of years as a smoker 8 a Ramona Hui smoking history, tot al pack/day 4 Ruby Ventimiglia [facility] cigarette use yes Ramona Monzon nd smoking status Current every da y smoker Rubyandrew Vasquez [facility] drug use no Petar Jacob MD alcohol use no Petar Jacob MD social history E&M S moking History: Airam forbes is a former smoker. Petar Jacob MD social history reviewed E&M revi ewed - no changes required Petar Jacob MD smoking, year quit 2019 Kandi javed number of years as a smoker 8 a Kandi Sweeney smoking history, tot al pack/day 1/2 ppd Kandi Sweeney cigarette use yes Kandi taylor smoking status Former smoker Kandi George rodriges drug use no Morenita Cross ARCHITECTURAL ASSOCIATE alcohol use no Morenita Cross NP social history E&M S moking History: P leidy is a former smoker. Morenita Cross NP social history reviewed E&M revi ewed - no changes required Morenita Hillclaudia BARBOSA smoking, year quit 2019 Mirta benjamin number of years as a smoker 8 a Mirta Rodriguez smoking history, tot al pack/day 1/2 ppd Mirta Whitakeryadira cigarette use yes Mirta Whitaker elder smoking status Former smoker Mirta Milnersridhar mora number of grandchildren Petar Jacob MD U staci Jacob MD drug use no Petar Jacob MD alcohol use no Petar Jacob MD social history E&M S moking History: Airam forbes is a former smoker. Petar Jacob MD social history reviewed E&M revi ewed - no changes required Petar Jacob MD number of years as a smoker 8 a Mirta Fostervinayak smoking history, tot al pack/day 1/2 ppd Mirta Whitakeryadira smoking, year quit 2019 Mirta Eller cassidy cigarette use yes Mirta Whitaker elder smoking status Former smoker Mirta Pastor nfeld FAMILY HISTORY Family Member Condition Father Family History of Hy pertension: Father Family History of Hy perlipidemia: Father Family History of Di abetes: Mother Family History of Hy pertension: Mother Family History of Hy perlipidemia: Mother Family History of Di abetes: INSURANCE PROVIDERS Payer name Policy type / Coverage type [place] red republican [place] [employer] Medicaid [id number] ADVANCE DIRECTIVES Name Date DISCUSSED - NO DECISION MADE TREATMENT PLAN Date Name Performer [id number],C,u pdate cbc as may contribute to tachycardia O rders: 9 9214 MOD 30-39min (CPT-83548) H olter Monitor 48 hr (CPT-91402) C omplete Echo (CPT-79864) S tress Routine (CPT-99926) C BC (INCLUDES DIFF/PLT) (6399) L IPID PANEL (7600) C OMPREHENSIVE METABOLIC PANEL, W/EGFR (49539) [facility] [id number],C,l ifestyle modification encouraged [facility] [id number],C,w ill update lipids T he following medications were removed from the medication list: Atorvastatin 10 Mg Tablet (Atorvastatin) ..... Take 1 tablet by mouth every night [facility] [id number],C,A ssociated with tachycardia. Her O2 saturation was 99% and lungs clear. Will do f/u labs and echo for futher evaluation as noted above H er updated medication list for this problem includes: Metoprolol Succinate 100 Mg Tablet Extended Release 24 Hr (Metoprolol succinate) ..... Take 1 tablet by mouth once daily [facility] [id number],S,R emains persistent HR of 130 on arrival to the office and remains elevated. Etiology unclear. There is question on Tiffany Rosas as her children recently diagnosed she is awaiting results of her genetic testing. This may be r/t inappropriate sinus tachycardia. We will have her increase her BB dose to 100 mg a day. Will do f/u echo to r/o any LV dysfunction r/t tachycardia. Will do routine treadmill to determine functional capacity. We will also do 48 hour tele to r/o underlying arrythmia. She will return post testing or sooner if needed. Will consider corlanor if no improvment with medication changes. O rders: 9 9214 MOD 30-39min (CPT-18305) H olter Monitor 48 hr (CPT-25861) C omplete Echo (CPT-25491) S tress Routine (CPT-05169) C BC (INCLUDES DIFF/PLT) (6399) L IPID PANEL (7600) C OMPREHENSIVE METABOLIC PANEL, W/EGFR (98350) [facility] Cardiology Gabriel santiago Cardiology Gabriel yovanyza Cardiology Gabriel [facility]ovanyuab [facility] Gabriel yovanyuab [facility] Cardiology: B P today: 148/90 P rior BP: 140/76 (05/21/2022) Her updated medication list for this problem includes: Metoprolol Succinate 50 Mg Tablet Extended Release 24 Hr (Metoprolol succinate) ..... Take 1 tablet by mouth once daily [facility] Cardiology [facility] Cardiology:update cb c as may contribute to tachycardia O rders: 9 9214 MOD 30-39min (CPT-42976) H olter Monitor 48 hr (CPT-54980) C omplete Echo (CPT-21709) S tress Routine (CPT-87148) C BC (INCLUDES DIFF/PLT) (6399) L IPID PANEL (7600) C OMPREHENSIVE METABOLIC PANEL, W/EGFR (26045) [facility] Cardiology:lifestyle modificatio n encouraged [facility] Cardiology:will upda te lipids T he following medications were removed from the medication list: Atorvastatin 10 Mg Tablet (Atorvastatin) ..... Take 1 tablet by mouth every night [facility] Cardiology:Associate d with tachycardia. Her O2 saturation was 99% and lungs clear. Will do f/u labs and echo for futher evaluation as noted above H er updated medication list for this problem includes: Metoprolol Succinate 100 Mg Tablet Extended Release 24 Hr (Metoprolol succinate) ..... Take 1 tablet by mouth [facility] Cardiology:Remains p ersistent HR of 130 on arrival to the office and remains elevated. Etiology unclear. There is question on Tiffany Danlos as her children recently diagnosed she is awaiting results of her genetic testing. This may be r/t inappropriate sinus tachycardia. We will have her increase her BB dose to 100 mg a day. Will do f/u echo to r/o any LV dysfunction r/t tachycardia. Will do routine treadmill to determine functional capacity. We will also do 48 hour tele to r/o underlying arrythmia. She will return post testing or sooner if needed. Will consider corlanor if no improvment with medication changes. O rders: 9 9214 MOD 30-39min (CPT-49382) H olter Monitor 48 hr (CPT-61356) C omplete Echo (CPT-72499) S tress Routine (CPT-85528) C BC (INCLUDES DIFF/PLT) (6399) L IPID PANEL (0040) C OMPREHENSIVE METABOLIC PANEL, W/EGFR (16713) Ruby Pedro PETERSENP Cardiology follow up : H er updated medication list for this problem includes: Metoprolol Succinate Er 50 Mg Oral Tablet Extended Release 24 Hour (Metoprolol succinate) ..... One tab. daily BP today: 128/80 P rior BP: 120/84 (05/30/2020) Petar Jacob MD Cardiology follow up :Remains on BB Petar Jacob MD Cardiology Follow up : H er updated medication list for this problem includes: Acid Control Maximum Strength 20 Mg Oral Tablet (Famotidine) ..... Take one pill at night Omeprazole 40 Mg Oral Capsule Delayed Release (Omeprazole) ..... Take 1 capsule by mouth once daily in the morning for 30 days Morenita Cross NP Cardiology Follow up : H er updated medication list for this problem includes: Atorvastatin Calcium 10 Mg Oral Tablet (Atorvastatin calcium) ..... Take 1 tablet by mouth once daily at bedtime Morenita Cross NP Cardiology Follow up :Holter 05/21/2020 R hythm: Sinus Rhythm. M ax HR 173 BPM, Min HR 75 BPM, Avg HR 112 BPM. N o Ventricular Ectopics noted. N o Supraventricular Ectopics noted. N o symptoms noted. Morenita Cross NP Cardiology Follow up :Much improved now that she is on BB and iron levels are better. Advised to cautiously increase exercise levels BP today: 120/84 P rior BP: 140/110 (05/16/2020) Morenita Cross NP Cardiology [place] Petar guzman MD Cardiology [place] :Improves with marijuana use Petar Jacob MD Cardiology [place] :Etiology unclear at present, most likely a combination of anxiety and deconditioning. The patient does not exert herself much. Will obtain echo to eval cardiac structure and function Petar Jacob MD Cardiology [place] :4 years ago. No recurrance Petar Jacob MD Cardiology [place] :Has upcoming iron infusions per Hematology Petar Jacob MD Cardiology [place] :Pulse 136. We will try her on Toprol XL 50mg and see how she does. Will also obtain holter study. Petar Jacob MD Date Name TSH, free T4, total T3 LIPID PANEL Lipoprotein (a) PROBNP, N TERMINAL HEMOGLOBIN A1c IRON AND TOTAL IRON BINDING CAPACITY FERRITIN CBC (INCLUDES DIFF/P LT) COMPREHENSIVE METABO LIC PANEL, W/EGFR CT, Coronary Calcium Score COMPREHENSIVE METABO LIC PANEL, W/EGFR LIPID PANEL CBC (INCLUDES DIFF/P LT) Stress Routine Complete Echo Holter Monitor 48 hr Complete Echo Holter Monitor 24 Hr HISTORY OF PROCEDURES Procedure Date Procedure Name Provider Procedure Notes S tatus Holter, 24 or 48 Petar Jacob MD com pleted Holter, 24 or 48 Petar Jacob MD com pleted EKG Petar Jacob MD completed
--- OUTSIDE RECORDS SUMMARY | 2024-09-20 17:04 | XMS_ITS | Clinical Summary ---
Author Organization [facility] Address [address] [place] [address] Phone Care Team Providers Care Box Attacher Name Role Phone Matthew Anderson MD Primary Care Provider [phone] Allergies Active Allergy Reactions Criticality Noted Date Comments Adhesive Tape-Silicones Hives High 09/08/2013 Hydrocodone Nausea and Vomiting Low 09/08/2013 Medications acetaminophen-co deine (TYLENOL #3) 300-30 mg tablet 08/31/2013 Active buPROPion HCl (WELLBUTRIN-XL) 300 mg tablet 08/24/2013 Activ e DOCUSATE SODIUM (COLACE ORAL) Take by mouth 1 time daily as needed. Active DOCOSAHEXANOIC ACID (DHA ORAL) Take by mouth. Active MULTIVIT &MINERALS/FERROU S FUM (MULTI VITAMIN ORAL) Take by mouth. Active IBUPROFEN ORAL Take by mouth. Active HYDROcodone-acet aminophen (NORCO) 5-325 mg tablet Take 1 Tab by mouth every 4 hours as needed (mild-moder ate pain). 20 Tab 0 11/10/2013 Active Active Problems No known active problems Family History Medical History Relation Name Comments Hypertension Father Stroke Father Ovarian Cancer Maternal Aunt mets to genna st Heart Disease Maternal Grandfather Breast Cancer Maternal Grandmother bilate ral Stroke Maternal Grandmother Hypertension Mother Hypertension Paternal Grandfather Stroke Paternal Grandfather Breast Cancer Paternal Grandmother Hypertension Paternal Grandmother Hypertension Sister Relation Name Status Comments Father Maternal Aunt Maternal Grandfather Maternal Grandmother Mother Paternal Grandfather Paternal Grandmother Sister Social History Tobacco Use Types Packs/Day Years Used Date Smoking Tobacco: Former Cigarettes Q uit: 02/10/2011 Alcohol Use Standard Drinks/Week Comments No 0 (1 standard drink = 0.6 oz pur e alcohol) Comments No Sex and Gender Information Value Date Recorded Sex Assigned at Not on file Legal Sex Female 11:09 AM CDT Gender Identity Not on file Sexual Orientation Not on file 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 Not on file Not on file Not on file Last Filed Vital Signs Vital Sign Reading Time Taken Comments Blood Pressure 120/84 11/10/2013 6:06 PM CDT Pulse 64 11/10/2013 6:06 PM CDT Temperature 36.2 C (97.2 F) 11/10/2013 6:06 PM CDT Respiratory Rate 20 11/10/2013 6:06 PM CDT Oxygen Saturation 100% 11/10/2013 6:06 PM CDT Inhaled Oxygen Concentration - - Weight 93.3 kg (205 lb 9.6 oz) 11/10/2013 8:46 A M CDT Height 167.6 cm (5' 6) 10/18/2013 12:54 PM CDT Body Mass Index 33.18 10/18/2013 12:54 PM CDT Plan of Treatment Health Maintenance Due Date Last Done Comments DTAP/TDAP/TD VACCINES (1 - Tdap) 2005 HEPATITIS B VACCINES (1 of 3 - 19+ 3-dose series) 2005 HPV/Cotest (21-29) 2007 CERVICAL CANCER SCREENING 2016 HPV/Cotest (30-65) 2016 PAP SMEAR 2016 01/10/2013 (Previously completed), 12/02/2011 (Previously completed) INFLUENZA VACCINE (#1) 2023 HPV VACCINES Aged Out No longer eligi ble based on patient's age to complete this topic Insurance Advance Directives For more information, please contact: [phone] * Full Code (Latest Code Status on File) Date Activated Date Inactivated Comments 11/10/2013 8:41 AM 11/10/2013 8:56 PM Care Teams Box Attacher Relationship Specialty Start Date End Date Matthew Anderson MD PCP - General Family Practice 09/08/13
== END 2024-09-20 14:13 | disposition home or self-care (01) ==
PROVIDERS: PCP Family Medicine; Referring Provider Family Medicine; Visit Provider Nurse Practitioner
DX: R11.2 Nausea with vomiting, unspecified (principal); K21.9 Gastro-esophageal reflux disease without esophagitis; K31.84 Gastroparesis; K59.04 Chronic idiopathic constipation; E78.5 Hyperlipidemia, unspecified
CPT/HCPCS: 36415; 80053; 80061; 84443; 84550; 85027; 85652; 86140

== ENCOUNTER 2024-10-25 14:07 | Outpatient (CLI) | payer OTHER, SELFPAY ==
--- OUTSIDE RECORDS SUMMARY | 2024-10-25 14:16 | XMS_ITS | Clinical Summary ---
Author Organization [facility] Address [address] [place] [address] Care Team Providers Care Cashier Name Role Phone Cesar Crowder MD Primary Care Provider [phone] Allergies Active Allergy Reactions Criticality Noted Date Comments Hydrocodone Nausea and Vomiting 09/08/2013 Tape Contact Dermatitis 09/08/2013 Medications DULoxetine 60 MG capsule Take 60 mg by mouth daily. Active LORazepam 0.5 MG tablet Take 0.5 mg by mouth daily as needed for Anxiety. Active lamoTRIgine 200 MG tablet Take 200 mg by mouth daily with breakfast. Active omeprazole 20 MG capsule Take 20 mg by mouth daily. Active folic acid 1 MG tablet Take 1 tablet (1 mg total) by mouth daily. 30 tablet 0 Active ferrous sulfate, 65 mg elemental, 325 (65 FE) MG tablet Take 1 tablet (325 mg total) by mouth daily with breakfast. 30 tablet 0 Active ondansetron 4 MG disintegrating tablet Take 1 tablet (4 mg total) by mouth every 8 (eight) hours as needed for Nausea. 20 tablet 2 Active ondansetron (ZOFRAN-ODT) 4 MG disintegrating tablet Take 1 tablet (4 mg total) by mouth every 8 (eight) hours as needed for Nausea. 20 tablet 2 Active metoclopramide (REGLAN) 10 MG tablet Take 1 tablet (10 mg total) by mouth 4 (four) times daily as needed. 15 tablet 2 Active Active Problems Problem Noted Date Diagnosed Date Iron deficiency anemia due to chronic blood loss 12/19/2019 Overview (12/19/2019): Added automatically from request for surgery [id number] Acid reflux 12/19/2019 Overview (12/19/2019): Added automatically from request for surgery [id number] Symptomatic anemia 11/28/2019 Abnormal reflex 06/24/2016 Acute cystitis without hematuria 06/24/2016 Myalgia 05/18/2016 Social History Tobacco Use Types Packs/Day Years Used Date Smoking Tobacco: Never Smokeless Tobacco: Never Tobacco Cessation:Counseling Given: Not Answered Alcohol Use Standard Drinks/Week Comments Yes 0 (1 standard drink = 0.6 oz pur e alcohol) very rarely Comments No Sex and Gender Information Value Date Recorded Sex Assigned at Not on file Legal Sex Female 7:17 PM CDT Gender Identity Not on file Sexual Orientation Not on file Last Filed Vital Signs Vital Sign Reading Time Taken Comments Blood Pressure 135/98 03/07/2022 2:30 PM HEALTHCARE ASSOCIATE Pulse 91 03/07/2022 2:30 PM HEALTHCARE ASSOCIATE Temperature 36 C (96.8 F) 03/07/2022 12:23 PM HEALTHCARE ASSOCIATE Respiratory Rate 16 03/07/2022 2:30 PM HEALTHCARE ASSOCIATE Oxygen Saturation 95% 03/07/2022 2:30 PM HEALTHCARE ASSOCIATE Inhaled Oxygen Concentration - - Weight 113.4 kg (250 lb) 03/07/2022 12:23 PM HEALTHCARE ASSOCIATE Height 170.2 cm (5' 7) 03/07/2022 12:23 PM HEALTHCARE ASSOCIATE Body Mass Index 39.16 03/07/2022 12:23 PM HEALTHCARE ASSOCIATE Plan of Treatment Health Maintenance Due Date Last Done Comments Annual Physical 1989 DTaP, Tdap and Td Vaccines ( 1 - Tdap) 2005 Hepatitis B Vaccines (1 of 3 - 19+ 3-dose series) 2005 COVID-19 Vaccine (2023-2 5 season) 2023 Hepatitis C Completed 05/20/2016 HPV Vaccines Aged Out No longer eligi ble based on patient's age to complete this topic Meningococcal B Vaccine Aged Out No l onger eligible based on patient's age to complete this topic Meningococcal Vaccine Aged Out No sil bernard eligible based on patient's age to complete this topic Pneumococcal Vaccine: Pediat rics (0 to 5 Years) and At-Risk Patients (6 to 49 Years) Aged Out No longer eligi ble based on patient's age to complete this topic RSV Immunizations Under 20 Months Aged Out No longer eligible based on patient's age to complete this topic Goals Goal Patient Goal Type Associated Problems Recent Progress Patient-Stated? Author HOME TO [facility] Cheri Lobato RN Insurance [employer] Advance Directives * Full Code (Latest Code Status on File) Date Activated Date Inactivated Comments 11/28/2019 4:38 PM 11/29/2019 5:38 PM Care Teams Cashier Relationship Specialty Start Date End Date Cesar Crowder MD PCP - General FAMILY PRACTICE 01/18/20
--- OUTSIDE RECORDS SUMMARY | 2024-10-25 14:16 | XMS_ITS | Clinical Summary ---
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
--- OUTSIDE RECORDS SUMMARY | 2024-10-25 14:16 | XMS_ITS | Clinical Summary ---
Author Organization [facility] Address [address] [place] [address] Care Team Providers Care Mill Controller Name Role Phone Cesar Crowder Primary Care Provider Unavailab le Source Comments [facility],non-owned Affiliates and Associated Physician Practices is amultiple site organization consisting of ambulatory clinics and hospital sitesin [place], [place], [place] and [place]. This disclosure is being madepursuant to the Care Everywhere program and may not contain all information available regarding this patient. Last updated 17.[facility] Allergies Active Allergy Reactions Criticality Noted Date Comments Adhesive Sensitivity Urticaria,Rash High 09/08/2013 Sulfamethoxazole W-Trimethoprim Rash Medium 11/14/2021 Took bactrim and developed rash, resolved with discontinuation Hydrocodone Nausea and/or Vomiting Low 09/08/2013 Sulfa Drugs Rash Medium 01/12/2022 Medications * Be aware that medications may not be up to date on this document. Alwaysverify current medications with the patient. gabapentin (NEURONTIN) 300 MG capsule Take 300 mg by mouth TID. 90 capsule 3 05/31/19 18 Active DULoxetine (CYMBALTA) 60 MG capsule Take 60 mg by mouth DAILY. 05/31/19 18 Active ergocalciferol (DRISDOL) 35945 UNITS capsule Take 50,000 Units by mouth q7days. 12 capsule 1 03/17/20 17 Active lamoTRIgine (LAMICTAL) 25 MG tablet Take by mouth BID 10/06/19 17 Active Probiotic Product (ACIDOPHILUS) 90-25 MG Take 2 tablets by mouth DAILY 05/18/19 17 Active clonazePAM (KLONOPIN) 0.5 MG tablet 06/26/19 18 Active folic acid (FOLVITE) 1 MG tablet Take 1 mg by mouth once daily 11/30/19 20 Active SLYND 4 MG TABS tablet Take 1 tablet by mouth once daily 02/08/20 20 Active metoprolol succinate XL 24hr (TOPROL XL) 50 MG tablet Take 50 mg by mouth once daily 05/16/19 21 Active famotidine (PEPCID) 40 MG tablet Take 1 tablet by mouth 05/08/19 21 Active liothyronine (CYTOMEL) 5 MCG tablet 06/14/19 22 Active metFORMIN ER 24hr (GLUCOPHAGE XR) 500 MG tablet Take 500 mg by mouth 2 times daily with morning and evening meal 04/06/20 21 Active cyclobenzaprin e (FLEXERIL) 10 MG tablet Take 1 (one) tablet by mouth 3 times daily as needed for Muscle Spasms 30 tablet 07/31/19 22 Active cyanocobalamin (VITAMIN B-12) injection INJECT 1 ML ONCE A WEEK IN THE MORNING 06/14/19 22 Active cyclobenzaprin e (FLEXERIL) 5 MG tablet Active DULoxetine (CYMBALTA) 30 MG capsule duloxetine 30 mg capsule,delayed release TAKE 1 CAPSULE BY MOUTH ONCE DAILY IN THE MORNING Active lamoTRIgine (LAMICTAL) 100 MG tablet Take 200 mg by mouth once daily Daily at bedtime. AM dose was causing nausea. 07/18/19 21 Active levothyroxine (SYNTHROID) 25 MCG tablet Synthroid 25 mcg tablet TAKE 1 TABLET DAILY FOR HYPOTHYROIDISM Active meclizine (ANTIVERT) 25 MG tablet as needed 09/24/19 21 Active mupirocin (BACTROBAN) 2 % ointment 11/10/19 21 Active ondansetron (ZOFRAN) 4 MG tablet ZOFRAN TABLET 05/16/19 21 Active phenazopyridin e (PYRIDIUM) 200 MG tablet 05/08/19 21 Active triamcinolone acetonide (KENALOG) 0.1 % cream 08/19/19 22 Active esomeprazole (NEXIUM) 10 MG packet Take 10 mg by mouth once daily Active neomycin-polym yxin-dexameth (MAXITROL) ophthalmic ointment Instill into both eyes 4 times daily 3.5 g 1 10/24/19 22 Active oxyCODONE, immediate release, (ROXICODONE) 5 MG tablet Take 1 (one) tablet by mouth every 4 hours as needed 20 tablet 10/24/19 Active acetaminophen (TYLENOL) 325 MG tablet Take 2 (two) tablets by mouth every 6 hours as needed for Fever or Pain Maximum allowable Acetaminophen amount = 4 Grams (4000 mg) / 24 hours. 40 tablet 1 10/24/19 Active ibuprofen (MOTRIN) 600 MG tablet Take 1 (one) tablet by mouth every 6 hours as needed 60 tablet 1 10/24/19 Active ondansetron, disintegrating , (ZOFRAN ODT) 4 MG tablet Take 1 (one) tablet by mouth every 6 hours as needed for Nausea/Vomiting Allow tablet to dissolve on the tongue 15 tablet 10/24/19 Active scopolamine (TRANSDERM-SCO P) 1 MG patch Apply 1 (one) patch to skin every 72 hours as needed for Other 4 patch 10/24/19 Active docusate sodium (COLACE) 100 MG capsule Take 1 (one) capsule by mouth 2 times daily 60 capsule 1 10/24/19 Active methylPREDNISo lone (Medrol) 4 MG tablet methylprednisolone 4 mg tablets in a dose pack Active lamoTRIgine (LaMICtal) 200 MG tablet lamotrigine 200 mg tablet Active Nirmatrelvir-R itonavir (PAXLOVID, 300/100, PO) Paxlovid 300 mg (150 mg x 2)-100 mg tablets in a dose pack (EUA) Active dicyclomine (Bentyl) 10 MG capsule dicyclomine 10 mg capsule TAKE 1 TO 2 CAPSULES BY MOUTH EVERY 6 HOURS NEEDED FOR ABDOMINAL PAIN Active metoclopramide (Reglan) 10 MG tablet Take 1 (one) tablet by mouth 4 times daily as needed 03/07/20 Active pantoprazole EC (Protonix) 40 MG tablet pantoprazole 40 mg tablet,delayed release TAKE 1 TABLET BY MOUTH TWICE DAILY Active ondansetron, disintegrating , (Zofran ODT) 4 MG tablet Take 1 (one) tablet by mouth every 8 hours as needed 03/07/20 Active Active Problems Problem Noted Date Diagnosed Date Postoperative state 10/22/2021 Depression 07/30/2021 Iron deficiency anemia due to chronic blood loss 05/07/2020 Vitamin D insufficiency 08/02/2017 Pelvic and perineal pain 03/17/2017 Paresthesia of skin 03/17/2017 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 Acute cystitis without hematuria 06/24/2016 Abnormal reflex 06/24/2016 Myalgia 05/18/2016 Other muscle spasm 05/18/2016 Pain in joint 05/18/2016 Personal history of pulmonary embolism 7 Family History Medical History Relation Name Comments Diabetes Father Hypertension Father Thyroid Disease Father Arthritis - Rheumatoid Maternal Grandmother Diabetes Mother Hypertension Mother Multiple Sclerosis Other aunt and uncle Status: Alive Diabetes Sister Hypertension Sister Lupus Neg Hx Relation Name Status Comments Father Maternal Grandmother Mother Other aunt and uncle Sister Social History Tobacco Use Types Packs/Day Years Used Date Smoking Tobacco: Every Day Cigarettes 0.3 1 Smokeless Tobacco: Never Tobacco Cessation:Ready to Q uit: Not Asked; Counseling Given: Not Answered Alcohol Use Standard Drinks/Week Comments Never 0 (1 standard drink = 0.6 oz pur e alcohol) Hunger Vital Sign Answer Date Recorded Within the past 12 months, y ou worried that your food would run out before you got the money to buy more. Never true 10/24/19 Within the past 12 months, t he food you bought just didn't last and you didn't have money to get more. Never true 10/23/2021 Comments No Sex and Gender Information Value Date Recorded Sex Assigned at Not on file Legal Sex Female 5:39 AM SMELTER OPERATOR Gender Identity Not on file Sexual Orientation Not on file Last Filed Vital Signs Vital Sign Reading Time Taken Comments Blood Pressure 124/72 03/23/2022 2:41 PM SMELTER OPERATOR Pulse 90 10/23/2021 12:00 PM CDT Temperature 36.1 C (96.9 F) 03/23/2022 2:41 PM SMELTER OPERATOR Respiratory Rate 20 10/23/2021 12:0 0 PM CDT Oxygen Saturation 97% 10/23/2021 12: 00 PM CDT Inhaled Oxygen Concentration - - Weight 111.5 kg (245 lb 12.8 oz) 03/23/2022 2:41 PM SMELTER OPERATOR Height 170.2 cm (5' 7) 03/23/2022 2:41 PM SMELTER OPERATOR Body Mass Index 38.5 03/23/2022 2:41 PM SMELTER OPERATOR Plan of Treatment Health Maintenance Due Date Last Done Comments HIV SCREENING 2001 DTAP/TDAP/TD VACCINES (1 - Tdap) 2005 HEPATITIS B VACCINE (1 of 3 - 19+ 3-dose series) 2005 PNEUMOCOCCAL VACCINE (1 of 2 - PCV) 2005 HPV VACCINE (1 - 3-dose SCDM series) 2013 COVID-19 VACCINE (1 - 2023-2 5 season) 2023 DEPRESSION SCREENING 04/12/2024 INFLUENZA VACCINE (#1) 2024 PAP with HPV 07/30/2026 07/30/2021 ZOSTER VACCINE (1 of 2) 2036 HEPATITIS C SCREENING Completed 05/20/2016 HIB VACCINE Aged Out No longer eligi ble based on patient's age to complete this topic MENINGOCOCCAL (Group B) VACC INE SHARED DECISION-MAKING Aged Out No longer eligibl e based on patient's age to complete this topic MENINGOCOCCAL GROUPS A/C/Y/W VACCINE Aged Out No longer eligible b ased on patient's age to complete this topic Medical Devices Implanted Type Area Senior Informatica Etl Developer Device Identifier Shelf Expiration Date Model / Serial / Lot Sys Ureth Supp Adalberto Adv Trnvg Midurethral Implanted:Qty: 1 on 10/22/2021 by Karan Kennedy MD at [facility] N/A: Bl[employer] 10/15/2023 [id number] / / [id number] Description:MM Procedures Procedure Name Priority Date/Time Associated Diagnosis Comments PAP IG LB+HPV APTIMA Routine 07/30/2021 11:03 AM CDT Pelvic and perineal pain HEPATITIS C ANTIBODY Routine 05/20/2016 1:14 PM SMELTER OPERATOR from Last 3 Months or Most Recently Relevant to Health Maintenance Results * PAP IG LB+HPV APTIMA (07/30/2021 11:03 AM CDT) Diagnosis Comment 08/04/2021 6:07 PM CDT [facility] ([facility]) Comment: NEGATIVE FOR INTRAEPITHELIAL LESION OR MALIGNANCY. CELLULAR CHANGES ASSOCIATED WITH INFLAMMATION ARE PRESENT. Specimen Adequacy Comment 022 6:07 PM CDT [facility] ([facility]) Comment: Satisfactory for evaluation. Endocervical and/or squamous metaplastic cells (endocervical component) are present. Performed by Comment 08/04/2021 6:07 PM CDT [facility] ([facility]) Comment:Moise Jolley, [employer] Technical Lead Senior Developer (ASCP) Comment . 08/04/2021 6:07 PM CDT [facility] ([facility]) Note Comment 08/04/2021 6:07 PM CDT [facility] ([facility]) Comment: The Pap smear is a screening test designed to aid in the detection of premalignant and malignant conditions of the uterine cervix. It is not a diagnostic procedure and should not be used as the sole means of detecting cervical cancer. Both false-positive and false-negative reports do occur. IGLBP CPT Code Automation Comment 08/04/2021 6:07 PM CDT [facility] ([facility]) Comment: This liquid based ThinPrep(R) pap test was screened with the use of an image guided system. Human papillomavirus Aptima Negative Negative 08/04/2021 6:07 PM CDT [facility] ([facility]) Comment: This nucleic acid amplification test detects fourteen high-risk HPV types (16,18,31,33,35,39,45,51,52,56,58,59,66,68) without differentiation. Pathology/Cytolo gy PART OF UTERINE CERVIX / Unknown Collection / Unknown 07/30/2021 11:03 AM CDT 07/30/2021 11:15 AM CDT Narrative [facility] ([facility]) - 08/04/2021 6:07 PM CDT Performed at: 01 - [facility] [id number] [employer] Reading Teacher: Mariaelena Hernandez MD, Phone: [phone] Performed at: 02 - [facility] [id number] [employer] Reading Teacher: Mariaelena Hernandez MD, Phone: [phone] Specimen Comment: No. of containers..01 ThinPrep Vial us Sav Murillo MD LAB - PATHOLOGY/CYTOLOGY ORDERAB LES Final Result [facility] ([facility]) [address] [place] [address] * HEPATITIS C ANTIBODY (05/20/2016 1:14 PM SMELTER OPERATOR) Hepatitis C Virus Antibody <0.1 0.0 - 0.9 s/co ratio [facility] ([facility]) Comment: Negative: < 0.8 Indeterminate: 0.8 - 0.9 Positive: > 0.9 The CDC recommends that a positive HCV antibody result be followed up with a HCV Nucleic Acid Amplification test (876349). Blood specimen (specimen) BLOOD SPECIMEN / Unknown 05/20/2016 1:14 PM SMELTER OPERATOR 05/20/2016 Narrative [facility] ([facility]) - 05/26/2016 3:13 PM SMELTER OPERATOR Performed at: [facility] [address] [place], [place] [id number] Elementary [employer] Reading Teacher: Ritesh Vasquez PhD, Phone: [phone] us [facility] Markos GILES LAB - CHEMISTRY ORDERABLES Ed ited Result - [facility] [address] [place] [address], [facility] from Last 3 Months or Most Recently Relevant to Health Maintenance Insurance [facility] Care Teams Mill Controller Relationship Specialty Start Date End Date Cesar Crowder Update Information PCP - General 12/01/17
--- NOTE | 2024-10-25 14:21 | ECG_ITS ---
Test Date: 2024-10-25 14:29:28 Measurements Intervals [place] Rate: 82 P: 38 WY: 140 QRS: 12 QRSD: 92 T: -1 QT: 344 QTc: 402 Interpretive Statements SINUS RHYTHM LOW QRS VOLTAGE IN PRECORDIAL LEADS Electronically Signed On 10-25-2024 23:28:20 CDT by Steve Le D.O
== END 2024-10-25 14:08 | disposition home or self-care (01) ==
LOC: ANHCARD 14:10
PROVIDERS: PCP Family Medicine; Visit Provider Nurse Practitioner
DX: Z79.899 Other long term (current) drug therapy (principal)
CPT/HCPCS: 93005

== ENCOUNTER 2024-10-26 11:18 | Outpatient (CLI) | payer OTHER, SELFPAY ==
--- OUTSIDE RECORDS SUMMARY | 2024-10-26 11:29 | XMS_ITS | Clinical Summary ---
Author Organization [facility] Address [address] [place] [address] Care Team Providers Care Hebrew Cantor Name Role Phone Cesar Crowder Primary Care Provider Unavailab le Source Comments [facility],non-owned Affiliates and Associated Physician Practices is amultiple site organization consisting of ambulatory clinics and hospital sitesin [place], [place], [place] and [place]. This disclosure is being madepursuant to the Care Everywhere program and may not contain all information available regarding this patient. Last updated 17.[facility] Allergies Active Allergy Reactions Criticality Noted Date [...] mouth DAILY. 05/31/19 18 Active ergocalciferol (DRISDOL) 06743 UNITS capsule Take 50,000 Units by mouth [...] on file Legal Sex Female 5:[address]ERK Gender Identity Not on file Sexual Orientation Not on file Last Filed Vital Signs Vital Sign Reading Time Taken Comments Blood Pressure 124/72 03/23/2022 2:[address] CLERK Pulse 90 10/23/2021 12:00 PM CDT Temperature 36.1 C (96.9 F) 03/23/2022 2:[address] CLERK Respiratory Rate 20 10/23/2021 12:0 0 PM CDT Oxygen Saturation 97% 10/23/2021 12: 00 PM CDT Inhaled Oxygen Concentration - - Weight 111.5 kg (245 lb 12.8 oz) 03/23/2022 2:[address] CLERK Height 170.2 cm (5' 7) 03/23/2022 2:[address] CLERK Body Mass Index 38.5 03/23/2022 2:[address] CLERK Plan of Treatment Health Maintenance Due Date [...] this topic Medical Devices Implanted Type Area Lead Sewage Plant Operator Device Identifier Shelf Expiration Date Model / Serial / Lot Sys Ureth Supp Adalberto Adv Trnvg Midurethral Implanted:Qty: 1 on 10/22/2021 by Karan Kennedy MD at [facility] N/A: Bladder [employer] 10/15/2023 [id number] / / [id number] Description:MM Procedures Procedure Name Priority Date/Time Associated Diagnosis Comments PAP IG LB+HPV APTIMA Routine 07/30/2021 11:03 AM CDT Pelvic and perineal pain HEPATITIS C ANTIBODY Routine 05/20/2016 1:[address] CLERK from Last 3 Months or Most Recently Relevant to Health Maintenance Results * PAP IG LB+HPV APTIMA (07/30/2021 11:03 AM CDT) Diagnosis Comment 08/04/2021 6:07 PM CDT [facility] ([facility]) Comment: NEGATIVE FOR INTRAEPITHELIAL LESION OR MALIGNANCY. CELLULAR CHANGES ASSOCIATED WITH INFLAMMATION ARE PRESENT. Specimen Adequacy Comment 022 6:07 PM CDT [facility] ([facility]) Comment: Satisfactory for evaluation. Endocervical and/or squamous metaplastic cells (endocervical component) are present. Performed by Comment 08/04/2021 6:07 PM CDT [facility] ([facility]) Comment:Moise Jolley, Parts Runner (ASCP) Comment . 08/04/2021 6:07 PM CDT [facility] ([facility]) Note Comment 08/04/2021 6:07 PM CDT [facility] ([facility]) Comment: The Pap smear is a screening test designed to aid in the detection of premalignant and malignant conditions of the uterine cervix. It is not a diagnostic procedure and should not be used as the sole means of detecting cervical cancer. Both false-positive and false-negative reports do occur. IGLBP CPT Code Automation Comment 08/04/2021 6:07 PM CDT [facility] ([facility]) Comment: This liquid based ThinPrep(R) pap test was screened with the use of an image guided system. Human papillomavirus Aptima Negative Negative 08/04/2021 6:07 PM CDT [facility] ([facility]) Comment: This nucleic acid amplification test detects fourteen high-risk HPV types (16,18,31,33,35,39,45,51,52,56,58,59,66,68) without differentiation. Pathology/Cytolo gy PART OF UTERINE CERVIX / Unknown Collection / Unknown 07/30/2021 11:03 AM CDT 07/30/2021 11:15 AM CDT Narrative [facility] ([facility]) - 08/04/2021 6:07 PM CDT Performed at: 01 - [facility] [id number] Medical Device Engineer: Mariaelena Hernandez MD, Phone: [phone] Performed at: 02 - [facility] [id number] Medical Device Engineer: Mariaelena Hernandez MD, Phone: [phone] Specimen Comment: No. of containers..01 ThinPrep Vial us Sav Murillo MD LAB - PATHOLOGY/CYTOLOGY ORDERAB LES Final Result [facility] ([facility]) [address] [place] [address] * HEPATITIS C ANTIBODY (05/20/2016 1:[address] CLERK) Hepatitis C Virus Antibody <0.1 0.0 - 0.9 s/co ratio [facility] ([facility]) Comment: Negative: < 0.8 Indeterminate: 0.8 - 0.9 Positive: > 0.9 The CDC recommends that a positive HCV antibody result be followed up with a HCV Nucleic Acid Amplification test (295344). Blood specimen (specimen) BLOOD SPECIMEN / Unknown 05/20/2016 1:[address] CLERK 05/20/2016 Narrative [facility] ([facility]) - 05/26/2016 3:[address] CLERK Performed at: [facility] [address] [place], [place] [id number] Medical Device Engineer: Ritesh Vasquez PhD, Phone: [phone] us [facility] Markos GILES LAB - CHEMISTRY ORDERABLES Ed ited Result - [facility] [address] [place] [address], [facility] from Last 3 Months or Most Recently Relevant to Health Maintenance Insurance [facility] Care Teams Hebrew Cantor Relationship Specialty Start Date End Date Cesar Crowder Update Information PCP - General 12/01/17
--- OUTSIDE RECORDS SUMMARY | 2024-10-26 11:29 | XMS_ITS | Clinical Summary ---
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
[2024-10-29 03:06] LABS: Calprotectin, Fecal 68 ug/g (0-120)
== END 2024-10-26 11:19 | disposition home or self-care (01) ==
PROVIDERS: PCP Family Medicine; Visit Provider Nurse Practitioner
DX: R79.82 Elevated C-reactive protein (CRP) (principal)
CPT/HCPCS: 83993

== ENCOUNTER 2024-11-09 09:24 | Outpatient (CLI) | payer OTHER, SELFPAY ==
--- NOTE | ~2024-11-09 | NM_ITS ---
EXAMINATION: NM_HEPATWP_NM DATE: 11/09/2024 11:15 INDICATION: Right upper cord and abdominal pain COMPARISON: None. TECHNIQUE: 0.17 mCi Tc-99m mebrofenin (Choletec) was administered intravenously. Scintigraphic image s of the abdomen were obtained for one hour. 3 mcg sincalide (Kinevac) was administered by slow intra venous infusion, and imaging was continued for 30 minutes. Gallbladder ejection fraction was calculat ed by the technologist. FINDINGS: There is normal clearance of radiotracer from the blood pool. There is homogeneous tracer uptake by t he liver. Activity progresses to the gallbladder and bowel. The gallbladder ejection fraction (GBEF) is 24% (normal 10-90%, but most patient with gallbladder dysfunction have GBEF < 35% which does over lap with the normal range). IMPRESSION: 1. Decreased gallbladder ejection fraction consistent with gallbladder dysfunction or chronic cholec ystitis in the appropriate clinical setting. Reviewed, dictated and finalized at location A. IMPRESSION: 1. Decreased gallbladder ejection fraction consistent with gallbladder dysfunc tion or chronic cholecystitis in the appropriate clinical setting.
--- OUTSIDE RECORDS SUMMARY | 2024-11-09 09:41 | XMS_ITS | Clinical Summary ---
Author Organization [facility] Address [address] [place] [address] Care Team Providers Care Apprentice Carpenter Name Role Phone Cesar Crowder Primary Care Provider Unavailab le Source Comments [facility],non-owned Affiliates and Associated Physician Practices is amultiple site organization consisting of ambulatory clinics and hospital sitesin [place], [place], [place] and [place]. This disclosure is being madepursuant to the Care Everywhere program and may not contain all information available regarding this patient. Last updated 17.[facility] Allergies Active Allergy Reactions Criticality Noted Date [...] mouth DAILY. 05/31/19 18 Active ergocalciferol (DRISDOL) 48647 UNITS capsule Take 50,000 Units by mouth [...] on file Legal Sex Female 5:39 AM COVER ASSEMBLER Gender Identity Not on file Sexual Orientation Not on file Last Filed Vital Signs Vital Sign Reading Time Taken Comments Blood Pressure 124/72 03/23/2022 2:41 PM COVER ASSEMBLER Pulse 90 10/23/2021 12:00 PM CDT Temperature 36.1 C (96.9 F) 03/23/2022 2:41 PM COVER ASSEMBLER Respiratory Rate 20 10/23/2021 12:0 0 PM CDT Oxygen Saturation 97% 10/23/2021 12: 00 PM CDT Inhaled Oxygen Concentration - - Weight 111.5 kg (245 lb 12.8 oz) 03/23/2022 2:41 PM COVER ASSEMBLER Height 170.2 cm (5' 7) 03/23/2022 2:41 PM COVER ASSEMBLER Body Mass Index 38.5 03/23/2022 2:41 PM COVER ASSEMBLER Plan of Treatment Health Maintenance Due Date [...] this topic Medical Devices Implanted Type Area Used Car Make Ready Worker Device Identifier Shelf Expiration Date Model / Serial / Lot Sys Ureth Supp Adalberto Adv Trnvg Midurethral Implanted:Qty: 1 on 10/22/2021 by Karan Kennedy MD at [facility] N/A: Bladder [employer] 10/15/2023 [id number] / / [id number] Description:MM Procedures Procedure Name Priority Date/Time Associated Diagnosis Comments PAP IG LB+HPV APTIMA Routine 07/30/2021 11:03 AM CDT Pelvic and perineal pain HEPATITIS C ANTIBODY Routine 05/20/2016 1:14 PM COVER ASSEMBLER from Last 3 Months or Most Recently Relevant to Health Maintenance Results * PAP IG LB+HPV APTIMA (07/30/2021 11:03 AM CDT) Diagnosis Comment 08/04/2021 6:07 PM CDT [facility] ([facility]) Comment: NEGATIVE FOR INTRAEPITHELIAL LESION OR MALIGNANCY. CELLULAR CHANGES ASSOCIATED WITH INFLAMMATION ARE PRESENT. Specimen Adequacy Comment 022 6:07 PM CDT [facility] ([facility]) Comment: Satisfactory for evaluation. Endocervical and/or squamous metaplastic cells (endocervical component) are present. Performed by Comment 08/04/2021 6:07 PM CDT [facility] ([facility]) Comment:Moise Jolley, Dairy Clerk (ASCP) Comment . 08/04/2021 6:07 PM CDT [facility] ([facility]) Note Comment 08/04/2021 6:07 PM CDT [facility] ([facility]) Comment: The Pap smear is a screening test designed to aid in the detection of premalignant and malignant conditions of the uterine cervix. It is not a diagnostic procedure and should not be used as the sole means of detecting cervical cancer. Both false-positive and false-negative reports do occur. IGLBP CPT Code Automation Comment 08/04/2021 6:07 PM CDT [facility] ([facility]) Comment: This liquid based ThinPrep(R) pap test was screened with the use of an image guided system. Human papillomavirus Aptima Negative Negative 08/04/2021 6:07 PM CDT [facility] ([facility]) Comment: This nucleic acid amplification test detects fourteen high-risk HPV types (16,18,31,33,35,39,45,51,52,56,58,59,66,68) without differentiation. Pathology/Cytolo gy PART OF UTERINE CERVIX / Unknown Collection / Unknown 07/30/2021 11:03 AM CDT 07/30/2021 11:15 AM CDT Narrative [facility] ([facility]) - 08/04/2021 6:07 PM CDT Performed at: 01 - [facility] [id number] Rose Grower: Marialeena Hernandez MD, Phone: [phone] Performed at: 02 - [facility] [id number] Rose Grower: Mariaelena Hernandez MD, Phone: [phone] Specimen Comment: No. of containers..01 ThinPrep Vial us Sav uMrillo MD LAB - PATHOLOGY/CYTOLOGY ORDERAB LES Final Result [facility] ([facility]) [address] [place] [address] * HEPATITIS C ANTIBODY (05/20/2016 1:14 PM COVER ASSEMBLER) Hepatitis C Virus Antibody <0.1 0.0 - 0.9 s/co ratio [facility] ([facility]) Comment: Negative: < 0.8 Indeterminate: 0.8 - 0.9 Positive: > 0.9 The CDC recommends that a positive HCV antibody result be followed up with a HCV Nucleic Acid Amplification test (764029). Blood specimen (specimen) BLOOD SPECIMEN / Unknown 05/20/2016 1:14 PM COVER ASSEMBLER 05/20/2016 Narrative [facility] ([facility]) - 05/26/2016 3:13 PM COVER ASSEMBLER Performed at: [facility] [address] [place], [place] [id number] Rose Grower: Ritesh Vasquez PhD, Phone: [phone] us [facility]ly [facility] Markos GILES LAB - CHEMISTRY ORDERABLES Ed ited Result - [facility] [address] [place] [address], [facility] from Last 3 Months or Most Recently Relevant to Health Maintenance Insurance [facility] Care Teams Apprentice Carpenter Relationship Specialty Start Date End Date Cesar Crowder Update Information PCP - General 12/01/17
--- OUTSIDE RECORDS SUMMARY | 2024-11-09 09:42 | XMS_ITS | Clinical Summary ---
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 Not on file Not [...] Health Maintenance Due Date Last Done Comments HPV VACCINES (1 - 3-dose series) 2001 DTAP/TDAP/TD VACCINES (1 - Tdap) 2005 HEPATITIS B VACCINES (1 of 3 - 19+ 3-dose series) 2005 HPV/Cotest (21-29) 2007 CERVICAL CANCER SCREENING 2016 HPV/Cotest (30-65) 2016 PAP SMEAR 2016 01/10/2013 (Prev iously completed), 12/02/2011 (Previously completed) INFLUENZA VACCINE (#1) 2024 Insurance Advance Directives For more information, please contact: [phone] * Full Code (Latest Code Status on File) Date Activated Date Inactivated Comments 11/10/2013 8:41 AM 11/10/2013 8:56 PM Care Teams Roller Mill Operator Relationship Specialty Start Date End Date Matthew Anderson MD PCP - General Family Practice 09/08/13
--- OUTSIDE RECORDS SUMMARY | 2024-11-09 09:42 | XMS_ITS | Clinical Summary ---
Author Organization [facility] Address [address] [place] [address] Care Team Providers Care Ict Customer Support Officer Name Role Phone Cesar Crowder MD Primary Care Provider [phone] Allergies Active Allergy Reactions Criticality Noted Date [...] (12/19/2019): Added automatically from request for surgery [id number] Acid reflux 12/19/2019 Overview (12/19/2019): Added automatically from request for surgery [id number] Symptomatic anemia 11/28/2019 Abnormal reflex 06/24/2016 Acute cystitis without hematuria 06/24/2016 Myalgia 05/18/2016 Encounters Date Type Department Care Team Description 10/27/2024 POTATOSOFT Message Enc [facility] Interventional [facility] [place] [address] [phone] Linda, [facility] Provider PAIN MANAGEMENT CLINIC from Last 3 Months Social History Tobacco Use Types Packs/Day Years [...] Comments Blood Pressure 135/98 03/07/2022 2:30 PM WASH WORKER Pulse 91 03/07/2022 2:30 PM WASH WORKER Temperature 36 C (96.8 F) 03/07/2022 12:23 PM WASH WORKER Respiratory Rate 16 03/07/2022 2:30 PM WASH WORKER Oxygen Saturation 95% 03/07/2022 2:30 PM WASH WORKER Inhaled Oxygen Concentration - - Weight 113.4 kg (250 lb) 03/07/2022 12:23 PM WASH WORKER Height 170.2 cm (5' 7) 03/07/2022 12:23 PM WASH WORKER Body Mass Index 39.16 03/07/2022 12:23 PM WASH WORKER Plan of Treatment Health Maintenance Due Date Last Done Comments Annual Physical 1989 DTaP, Tdap and Td Vaccines ( 1 - Tdap) 2005 Hepatitis B Vaccines (1 of 3 - 19+ 3-dose series) 2005 HPV Vaccines (1 - 3-dose SCD M series) 2013 COVID-19 Vaccine (2023-2 5 season) 2023 Hepatitis C Completed 05/20/2016 Meningococcal B Vaccine Aged Out No l [...] Problems Recent Progress Patient-Stated? Author HOME TO [facility] No Cheri Lobato, RN Insurance [employer] Advance Directives * Full Code (Latest Code Status on File) Date Activated Date Inactivated Comments 11/28/2019 4:38 PM 11/29/2019 5:38 PM Care Teams Ict Customer Support Officer Relationship Specialty Start Date End Date Cesar Crowder MD PCP - General FAMILY PRACTICE 01/18/20
--- OUTSIDE RECORDS SUMMARY | 2024-11-09 09:42 | XMS_ITS | Encounter Summary ---
Author Organization [facility] Address [facility] [place] [address] Care Team Providers Care Paint Spraying Machine Operator Helper Name Role Phone Cesar Crowder MD Primary Care Provider [phone] Encounter Details Date Type Department Care Team (Latest Contact Info) Description 10/27/2024 [employer] Message [facility] Interventional [place] [address] [phone] [facility] Social History Tobacco Use Types Packs/Day Years Used Date Smoking Tobacco: Never Smokeless Tobacco: Never Alcohol Use Standard Drinks/Week Comments Yes 0 (1 standard drink = 0.6 oz pur e alcohol) very rarely Comments No Sex and Gender Information Value Date Recorded Sex Assigned at Not on file Legal Sex Female 7:17 PM CDT Gender Identity Not on file Sexual Orientation Not on file documented as of this encounter Functional Status * RETIRED Are you deaf or do you have serious difficulty hearing Answer Date of Assessment Author Status No 11/28/2019 5:43 PM CDT Activ e * RETIRED Are you blind or do you have serious difficulty seeing, even when wearing glasses? Answer Date of Assessment Author Status No 11/28/2019 5:43 PM CDT Activ e * Do you have serious difficulty walking or climbing stairs? Answer Date of Assessment Author Status No 11/28/2019 5:43 PM CDT Susy Hdez RN Active * Do you have difficulty dressing or bathing? Answer Date of Assessment Author Status No 11/28/2019 5:43 PM Susy Hairston RN Active * Because of a physical, mental, or emotional condition, do you have difficulty doing errands alone such as visiting a doctor's office or shopping? Answer Date of Assessment Author Status No 11/28/2019 5:43 PM Susy Hairston RN Active documented as of this encounter Mental Status * Because of a physical, mental, or emotional condition, do you have serious difficulty concentrating, remembering, or making decisions? Answer Entry Date Author Status No 11/28/2019 5:43 PM Susy Hairston RN Active documented in this encounter Plan of Treatment Not on file documented as of this encounter Goals Goal Patient Goal Type Associated Problems Recent Progress Patient-Stated? Author HOME TO [facility] No Cheri Lobato RN documented as of this encounter Visit Diagnoses Not on filedocumented in this encounter Care Teams Paint Spraying Machine Operator Helper Relationship Specialty Start Date End Date Cesar Crowder MD PCP - General FAMILY PRACTICE 01/18/20 documented as of this encounter
== END 2024-11-09 09:25 | disposition home or self-care (01) ==
PROVIDERS: PCP Family Medicine; Visit Provider Nurse Practitioner
DX: R11.2 Nausea with vomiting, unspecified (principal); R10.11 Right upper quadrant pain
CPT/HCPCS: 78227; A9537; J2805

== ENCOUNTER 2024-11-22 09:29 | Emergency (ER) | payer OTHER, SELFPAY ==
--- OUTSIDE RECORDS SUMMARY | 2024-11-22 09:35 | XMS_ITS | Clinical Summary ---
Author Organization [facility] Address [address] [place] [address] Care Team Providers Care Coin Machine Supervisor Name Role Phone Cesar Crowder Primary Care Provider Unavailab le Source Comments [facility],non-owned Affiliates and Associated Physician Practices is amultiple site organization consisting of ambulatory clinics and hospital sitesin [place], [place], [place] and [place]. This disclosure is being madepursuant to the Care Everywhere program and may not contain all information available regarding this patient. Last updated 17.[facility] Allergies Active Allergy Reactions Criticality Noted Date [...] mouth DAILY. 05/31/19 18 Active ergocalciferol (DRISDOL) 68825 UNITS capsule Take 50,000 Units by mouth [...] on file Legal Sex Female 5:39 AM NEONATOLOGIST Gender Identity Not on file Sexual Orientation Not on file Last Filed Vital Signs Vital Sign Reading Time Taken Comments Blood Pressure 124/72 03/23/2022 2:41 PM NEONATOLOGIST Pulse 90 10/23/2021 12:00 PM CDT Temperature 36.1 C (96.9 F) 03/23/2022 2:41 PM NEONATOLOGIST Respiratory Rate 20 10/23/2021 12:0 0 PM CDT Oxygen Saturation 97% 10/23/2021 12: 00 PM CDT Inhaled Oxygen Concentration - - Weight 111.5 kg (245 lb 12.8 oz) 03/23/2022 2:41 PM NEONATOLOGIST Height 170.2 cm (5' 7) 03/23/2022 2:41 PM NEONATOLOGIST Body Mass Index 38.5 03/23/2022 2:41 PM NEONATOLOGIST Plan of Treatment Health Maintenance Due Date [...] this topic Medical Devices Implanted Type Area Group Work Program Aide Device Identifier Shelf Expiration Date Model / Serial / Lot Sys Ureth Supp Adalberto Adv Trnvg Midurethral Implanted:Qty: 1 on 10/22/2021 by Karan Kennedy MD at [facility] N/A: Bladder Viraloid 10/15/2023 [id number] / / [id number] Description:MM Procedures Procedure Name Priority Date/Time Associated Diagnosis Comments PAP IG LB+HPV APTIMA Routine 07/30/2021 11:03 AM CDT Pelvic and perineal pain HEPATITIS C ANTIBODY Routine 05/20/2016 1:14 PM NEONATOLOGIST from Last 3 Months or Most Recently Relevant to Health Maintenance Results * PAP IG LB+HPV APTIMA (07/30/2021 11:03 AM CDT) Diagnosis Comment 08/04/2021 6:07 PM CDT [facility] ([facility]) Comment: NEGATIVE FOR INTRAEPITHELIAL LESION OR MALIGNANCY. CELLULAR CHANGES ASSOCIATED WITH INFLAMMATION ARE PRESENT. Specimen Adequacy Comment 022 6:07 PM CDT [facility] ([facility]) Comment: Satisfactory for evaluation. Endocervical and/or squamous metaplastic cells (endocervical component) are present. Performed by Comment 08/04/2021 6:07 PM CDT [facility] ([facility]) Comment:Moise Jolley, .Net Developer (ASCP) Comment . 08/04/2021 6:07 PM CDT [facility] ([facility]) Note Comment 08/04/2021 6:07 PM CDT [facility] ([facility]) Comment: The Pap smear is a screening test designed to aid in the detection of premalignant and malignant conditions of the uterine cervix. It is not a diagnostic procedure and should not be used as the sole means of detecting cervical cancer. Both false-positive and false-negative reports do occur. IGLBP CPT Code Automation Comment 08/04/2021 6:07 PM CDT [facility] ([facility]) Comment: This liquid based ThinPrep(R) pap test was screened with the use of an image guided system. Human papillomavirus Aptima Negative Negative 08/04/2021 6:07 PM CDT [facility] ([facility]) Comment: This nucleic acid amplification test detects fourteen high-risk HPV types (16,18,31,33,35,39,45,51,52,56,58,59,66,68) without differentiation. Pathology/Cytolo gy PART OF UTERINE CERVIX / Unknown Collection / Unknown 07/30/2021 11:03 AM CDT 07/30/2021 11:15 AM CDT Narrative [facility] ([facility]) - 08/04/2021 6:07 PM CDT Performed at: 01 - [facility] [id number] Superintendent Pressure: Mariaelena Hernandez MD, Phone: [phone] Performed at: 02 - [facility] [id number] Superintendent Pressure: Mariaelena Hernandez MD, Phone: [phone] Specimen Comment: No. of containers..01 ThinPrep Vial us Sav Murillo MD LAB - PATHOLOGY/CYTOLOGY ORDERAB LES Final Result [facility] ([facility]) [address] [place] [address] * HEPATITIS C ANTIBODY (05/20/2016 1:14 PM NEONATOLOGIST) Hepatitis C Virus Antibody <0.1 0.0 - 0.9 s/co ratio [facility]) Comment: Negative: < 0.8 Indeterminate: 0.8 - 0.9 Positive: > 0.9 The CDC recommends that a positive HCV antibody result be followed up with a HCV Nucleic Acid Amplification test (536326). Blood specimen (specimen) BLOOD SPECIMEN / Unknown 05/20/2016 1:14 PM NEONATOLOGIST 05/20/2016 Narrative [facility] ([facility]) - 05/26/2016 3:13 PM NEONATOLOGIST Performed at: [facility] [address] [place], [place] [id number] Superintendent Pressure: Ritesh Vasquez PhD, Phone: [phone] us [facility] Markos GILES LAB - CHEMISTRY ORDERABLES Ed ited Result - [facility] [address] [place] [address], [facility] from Last 3 Months or Most Recently Relevant to Health Maintenance Insurance [facility] Care Teams Coin Machine Supervisor Relationship Specialty Start Date End Date Cesar Crowder Update Information PCP - General 12/01/17
--- OUTSIDE RECORDS SUMMARY | 2024-11-22 09:35 | XMS_ITS | Clinical Summary ---
Author Organization [facility] Address [address] [place] [address] Care Team Providers Care Icing Coater Name Role Phone Cesar Crowder MD Primary Care Provider [phone] Allergies Active Allergy Reactions Criticality Noted Date [...] (12/19/2019): Added automatically from request for surgery [id number] Acid reflux 12/19/2019 Overview (12/19/2019): Added automatically from request for surgery [id number] Symptomatic anemia 11/28/2019 Abnormal reflex 06/24/2016 Acute cystitis without hematuria 06/24/2016 Myalgia 05/18/2016 Encounters Date Type Department Care Team Description 10/27/2024 I Move You Message Enc [facility] Interventional Pain Management [place] [address] [phone] Linda, [facility] Provider PAIN MANAGEMENT CLINIC from [...] Comments Blood Pressure 135/98 03/07/2022 2:30 PM MEAT PROCESS WORKER Pulse 91 03/07/2022 2:30 PM MEAT PROCESS WORKER Temperature 36 C (96.8 F) 03/07/2022 12:23 PM MEAT PROCESS WORKER Respiratory Rate 16 03/07/2022 2:30 PM MEAT PROCESS WORKER Oxygen Saturation 95% 03/07/2022 2:30 PM MEAT PROCESS WORKER Inhaled Oxygen Concentration - - Weight 113.4 kg (250 lb) 03/07/2022 12:23 PM MEAT PROCESS WORKER Height 170.2 cm (5' 7) 03/07/2022 12:23 PM MEAT PROCESS WORKER Body Mass Index 39.16 03/07/2022 12:23 PM MEAT PROCESS WORKER Plan of Treatment Health Maintenance Due [...] Problems Recent Progress Patient-Stated? Author HOME TO [facility] No Cheri Lobato, RN Insurance [employer] Advance Directives * Full Code (Latest Code Status on File) Date Activated Date Inactivated Comments 11/28/2019 4:38 PM 11/29/2019 5:38 PM Care Teams Icing Coater Relationship Specialty Start Date End Date Cesar Crowder MD PCP - General FAMILY PRACTICE 01/18/20
--- OUTSIDE RECORDS SUMMARY | 2024-11-22 09:35 | XMS_ITS | Encounter Summary ---
Author Organization [facility] Address [facility] [place] [address] Care Team Providers Care Brakes Inspector Name Role Phone Cesar Crowder MD Primary Care Provider [phone] Encounter Details Date Type Department Care Team (Latest Contact Info) Description 10/27/2024 [employer] Private Message [facility] Interventional [place] [address] [phone] [facility] Social History Tobacco [...] Problems Recent Progress Patient-Stated? Author HOME TO [facility] No Cheri Lobato RN documented as of this encounter Visit Diagnoses Not on filedocumented in this encounter Care Teams Brakes Inspector Relationship Specialty Start Date End Date Cesar Crowder MD PCP - General FAMILY PRACTICE 01/18/20 documented as of this encounter
--- OUTSIDE RECORDS SUMMARY | 2024-11-22 09:35 | XMS_ITS | Clinical Summary ---
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
[2024-11-22 09:43] VITALS: BP 143/96; PULSE 86; RESP 18; TEMP 36.1; O2SAT 100
[2024-11-22 09:57] LABS: EDUAAPPEAR Cloudy; EDUABILI Negative (Negative); EDUABLOOD Negative (Negative); EDUACOLOR1 Yellow; EDUAGLUCOSE Negative (Negative); EDUAKETONE Negative (Negative); EDUALEUKO Negative (Negative); EDUANITRATE Negative (Negative); EDUAPH 6.5; EDUAPROTEIN Negative (Negative); EDUASPGRAVITY 1.010; EDUAUROBILI 0.2
--- NOTE | 2024-11-22 10:11 | ED.BACK ---
HPI - Back Pain/Injury General Chief Complaint: Back Pain/Injury Stated Complaint: left flank pain Time Seen by Provider: 11/22/24 10:00 Source: patient and RN notes reviewed Mode of arrival: ambulatory Limitations: no limitations History of Present Illness HPI Narrative: Vfgdcs-dhwhb-haiw-old female presents Express Care complaining of left flank pain that started last night. Patient denies doing anything in the pains only started in her left flank. Patient denies any injuries. Patient reports certain movements make the left flank pain worse. Patient also reports having chills and nausea. Patient states she has a history of chronic nausea but pain is make it worse. Patient states she is intermittently over the last week also had urinary symptoms reporting a burning sensation and suprapubic discomfort it has been intermittent. Patient denies any vomiting, fevers, body aches, chest pain, shortness of breath, diarrhea, or any other symptoms. Patient says she sees her GI specialist on Wednesday for chronic issue she has been having with her gallbladder. Related Data Home Medications ?Medication ?Instructions ?Recorded ?Confirmed ?Last Taken ?Type metoprolol succinate 50 mg 50 mg PO DAILY 11/09/20 11/22/24 06/30/22 08:30 History tablet,extended release 24 hr lamotrigine 200 mg tablet 200 mg PO DAILY 03/02/24 11/22/24 Unknown History allopurinol 100 mg tablet 100 mg PO DAILY 09/20/24 11/22/24 Unknown History buspirone 5 mg tablet 5 mg PO BID 09/20/24 11/22/24 Unknown History ezetimibe 10 mg tablet 10 mg PO DAILY 09/20/24 11/22/24 Unknown History Allergies Allergy/AdvReac Type Severity Reaction Status Date / Time adhesive tape Allergy Mild RASH Verified 11/22/24 11:11 methohexital (Brevital) Allergy Unknown y Verified 11/22/24 11:11 Sulfa (Sulfonamide Allergy Rash Verified 11/22/24 11:11 Antibiotics) atropine AdvReac Unknown Nausea Verified 11/22/24 11:11 dexamethasone AdvReac Unknown Nausea Verified 11/22/24 11:11 meperidine AdvReac Unknown Nausea Verified 11/22/24 11:11 Review of Systems Review of Systems: CONSTITUTIONAL: Denies fever, or sweats. Positive for chills. EYES: Denies visual changes, redness, or discharge. ENT: Denies rhinorrhea, congestion, sore throat, or otalgia. CARDIOVASCULAR: Denies chest pain, palpitations, or edema. RESPIRATORY: Denies cough or dyspnea. GASTROINTESTINAL: Denies abdominal pain, vomiting, or diarrhea. Positive for nausea. GENITOURINARY: Denies hematuria, vaginal bleeding, vaginal discharge. Positive for dysuria. SKIN: Denies rash or itching. MUSCULOSKELETAL: Denies back pain, joint pain, or myalgia. Positive left flank pain. NEUROLOGIC: Denies headache, numbness, or weakness. PSYCHIATRIC: Denies anxiety or depression. All other systems reviewed are negative, except as documented in HPI. [facility] Past Medical History Medical History Tiffany-Danlos disease Pulmonary embolism DDD (degenerative disc disease) SVT (supraventricular tachycardia) Tachyarrhythmia Marijuana abuse Obesity Chronic pain JOSE D (iron deficiency anemia) Colitis Regurgitation of food IBS (irritable bowel syndrome) GERD (gastroesophageal reflux disease) Early satiety Nausea and vomiting Upper abdominal pain Surgical History Surgical History S/P abdominal hysterectomy History of repair of rectocele Family History Family History Father Hypertension Family history of diabetes mellitus in first degree relative Mother Hypertension Family history of diabetes mellitus in first degree relative Social History Social History Years smoked: 18 Smoking status: Current some day smoker Tobacco type: cigarettes Alcohol intake: never Substance use: current Substance use type: marijuana Other substance usage details: before bed Last use: 2X weekly Living arrangements: with family Gender identity (if verbalized by the patient): Female Spiritual care concerns: No Comments At the time of my signature, I reviewed and agree with the nursing past medical, surgical, social, and family history. There is no relevant family history pertinent to the patient complaint. Exam Narrative: GENERAL: This is a well-nourished, well-developed adult, in no apparent distress. They are non ill-appearing, nontoxic appearing. Patient is obese. HEAD: normocephalic, atraumatic. EYES: Sclera clear/white. Conjunctiva normal. Vision is grossly intact. Extraocular movements intact EARS: External ears normal Hearing grossly intact. NOSE: External nose normal THROAT: Mucous membranes moist, NECK: Neck supple, CARDIOVASCULAR: Regular rate and rhythm without murmurs, gallops, or rubs. RESPIRATORY: Clear to auscultation. Breath sounds equal bilaterally. No wheezes, rales, or rhonchi. GASTROINTESTINAL: Abdomen soft, non-tender, nondistended. Bowel sounds are active. No hepato-splenomegaly, or palpable masses. No guarding or rigidity. No rebound tenderness. SKIN: warm, Dry, intact with no suspicious lesions or rash, good texture and turgor. NEURO: awake, alert, and oriented to person, place and time. There were no obvious focal neurologic abnormalities. EXTREMITIES: No joint tenderness, effusion, or edema noted. BACK: Nontender without deformity. Left CVA tenderness. Left flank tender to palpate. Course Course Emergency Course: Portions of this record may have been created with voice recognition software Level of Care: Express Care Visit Vital Signs Vital signs: Vital Signs Temperature 96.9 F L 11/22/24 09:43 Pulse Rate 86 11/22/24 09:43 Respiratory Rate 18 11/22/24 09:43 Blood Pressure 143/96 H 11/22/24 09:43 Pulse Oximetry 100 11/22/24 09:43 Oxygen Delivery Room Air 11/22/24 09:43 Temperature 96.9 F L 11/22/24 09:43 Pulse Rate 86 11/22/24 09:43 Respiratory Rate 18 11/22/24 09:43 Blood Pressure 143/96 H 11/22/24 09:43 Pulse Oximetry 100 11/22/24 09:43 Oxygen Delivery Room Air 11/22/24 09:43 Reviewed Transfer Transfered to: [facility] Transportation: Other (Private vehicle) Transfer rationale: Patient requires higher level care. Further evaluation management, advanced imaging, lab work, rule out kidney stone or pyelonephritis or any other conditions. Accepting physician: Loan BARBOSA MDM - Back Pain/Injury MDM Narrative Medical decision making narrative: Urine dipstick negative for any signs of infection or blood in urine. Given patient's symptoms, it is recommend the patient seek a higher level care and proceed immediately to the emergency department. Patient is agreeable to go to [facility]. Called over to [facility] and spoke with Loan BARBOSA who is aware this patient accepted the patient for transfer. Patient advised to remain NPO and proceed immediately to the ER. Differential Diagnosis Differential diagnosis: Likely other (Muscle strain, renal stone, pyelonephritis, pleurisy) Lab Data Attestation: I reviewed the patient's lab results. Labs: Lab Results 11/22/24 Range/Units 09:53 POC Urine Color Yellow POC Urine Clarity Cloudy POC Urine pH 6.5 POC Ur Specif Berino 1.010 POC Urine Protein Negative (Negative) POC Ur Glucose (UA) Negative (Negative) POC Urine Ketones Negative (Negative) POC Urine Blood Negative (Negative) POC Urine Nitrite Negative (Negative) POC Urine Bilirubin Negative (Negative) POC Urine Urobilinogen 0.2 POC U Leukocyte Esteras Negative (Negative) Critical Care Time Critical Care Time Critical Care Time: No Discharge Plan Discharge Clinical Impression: Acute left flank pain Patient Disposition: Acute Care Hospital Condition: Stable Patient Language: Turkish Prescriptions: No Action metoprolol succinate 50 mg tablet extended release 24 hr 50 mg PO DAILY allopurinol 100 mg tablet 100 mg PO DAILY buspirone 5 mg tablet 5 mg PO BID ezetimibe 10 mg tablet 10 mg PO DAILY pantoprazole 40 mg tablet,delayed release (DR/EC) 40 mg PO BID Qty: 60 3RF metoclopramide HCl 10 mg tablet 10 mg PO ACHS Qty: 180 3RF lamotrigine 200 mg tablet 200 mg PO DAILY Linzess 72 mcg capsule 72 mcg PO DAILY Qty: 30 3RF prucalopride [Motegrity] 2 mg tablet 2 mg PO DAILY Qty: 30 3RF Follow-up/Referrals: Vel,MD Cesar [Primary Care Provider] - Time of Disposition: 10:10
== END 2024-11-22 10:15 | disposition short-term general hospital (02) ==
PROVIDERS: PCP Family Medicine
DX: R10.9 Unspecified abdominal pain (principal); F17.210 Nicotine dependence, cigarettes, uncomplicated; F12.90 Cannabis use, unspecified, uncomplicated; Q79.60 Ehlers-Danlos syndrome, unspecified; K21.9 Gastro-esophageal reflux disease without esophagitis; E66.9 Obesity, unspecified; Z68.34 Body mass index [BMI] 34.0-34.9, adult; Z86.711 Personal history of pulmonary embolism
CPT/HCPCS: 81003; 99212; 99213; G0463

== ENCOUNTER 2024-11-22 10:31 | Emergency (ER) | payer OTHER, SELFPAY ==
--- NOTE | ~2024-11-22 | US_ITS ---
EXAMINATION: US pelvic complete w TV INDICATION: Left pelvic pain Comparison:CT dated 11/22/2024 TECHNIQUE: Multiple transabdominal and endovaginal sonographic images of the pelvis performed. FINDINGS: The uterus is essentially absent. The right ovary measures 2.5 x 2.9 x 1.7 cm and the left ovary measures 2 x 1.4 x 1.2 cm. There are small follicles in each ovary. Normal doppler signal in both ovaries. There is no free fluid in the pelvis. There are no abnormal masses seen on either side. IMPRESSION: 1. Unremarkable pelvic ultrasound status post hysterectomy. Reviewed, dictated and finalized at location A.
--- NOTE | ~2024-11-22 | CT_ITS ---
EXAMINATION: CT abdomen pelvis wo con DATE: 11/22/2024 12:38 INDICATION: Left flank pain TECHNIQUE: Computed tomography (CT) of the abdomen and pelvis was performed without intravenous contr ast. Automated exposure control and iterative reconstruction technique were employed. The dose-length product was 1230.39 mGy-cm. COMPARISON: 08/28/2015 FINDINGS: Lung bases are clear. Heart size is normal. No pericardial or pleural effusion. Diffuse hepatic steat osis. Gallbladder, spleen, pancreas, bilateral adrenal glands and right kidney are normal. There are 4 nonobstructing left renal stones the largest measuring 4 mm in the upper pole calyx and 4-5 mm at a lower pole calyx. No hydronephrosis. No right-sided nephrolithiasis or stones seen along the course of the bilateral normal-appearing ureters. Bowels including the appendix are normal. Bladder is saloni l. The uterus is not identified and has likely been surgically resected. 1.5 [address] right adnexal cy st/follicle. Left adnexa is unremarkable. No free intraperitoneal gas or fluid. No pathologically enl arged abdominal or pelvic lymphadenopathy. Mild lumbar spondylosis. IMPRESSION: 1. Nonobstructing left nephrolithiasis. No ureteral stones or hydronephrosis. Reviewed, dictated and finalized at location A.
--- OUTSIDE RECORDS SUMMARY | 2024-11-22 10:44 | XMS_ITS | Clinical Summary ---
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
--- OUTSIDE RECORDS SUMMARY | 2024-11-22 10:44 | XMS_ITS | Clinical Summary ---
Author Organization [facility] Address [address] [address] Care Team Providers Care Rig Manager Name Role Phone Cesar Crowder Primary Care Provider Unavailab le Source Comments [facility],non-owned Affiliates and Associated Physician Practices is amultiple site organization consisting of ambulatory clinics and hospital sitesin [place], [place], [place] and [place]. This disclosure is being madepursuant to the Care Everywhere program and may not contain all information available regarding this patient. Last updated 17.[facility] Allergies Active Allergy Reactions Criticality Noted Date [...] mouth DAILY. 05/31/19 18 Active ergocalciferol (DRISDOL) 60170 UNITS capsule Take 50,000 Units by mouth [...] on file Legal Sex Female 5:39 AM DRAWING SUPERVISOR Gender Identity Not on file Sexual Orientation Not on file Last Filed Vital Signs Vital Sign Reading Time Taken Comments Blood Pressure 124/72 03/23/2022 2:41 PM DRAWING SUPERVISOR Pulse 90 10/23/2021 12:00 PM CDT Temperature 36.1 C (96.9 F) 03/23/2022 2:41 PM DRAWING SUPERVISOR Respiratory Rate 20 10/23/2021 12:0 0 PM CDT Oxygen Saturation 97% 10/23/2021 12: 00 PM CDT Inhaled Oxygen Concentration - - Weight 111.5 kg (245 lb 12.8 oz) 03/23/2022 2:41 PM DRAWING SUPERVISOR Height 170.2 cm (5' 7) 03/23/2022 2:41 PM DRAWING SUPERVISOR Body Mass Index 38.5 03/23/2022 2:41 PM DRAWING SUPERVISOR Plan of Treatment Health Maintenance Due Date [...] this topic Medical Devices Implanted Type Area Financial Solutions Advisor Device Identifier Shelf Expiration Date Model / Serial / Lot Sys Ureth Supp Adalberto Adv Trnvg Midurethral Implanted:Qty: 1 on 10/22/2021 by Karan Kennedy MD at [facility] N/A: Bladder H-art (WPP) 10/15/2023 [id number] / / [id number] Description:MM Procedures Procedure Name Priority Date/Time Associated Diagnosis Comments PAP IG LB+HPV APTIMA Routine 07/30/2021 11:03 AM CDT Pelvic and perineal pain HEPATITIS C ANTIBODY Routine 05/20/2016 1:14 PM DRAWING SUPERVISOR from Last 3 Months or Most Recently Relevant to Health Maintenance Results * PAP IG LB+HPV APTIMA (07/30/2021 11:03 AM CDT) Diagnosis Comment 08/04/2021 6:07 PM CDT [facility] ([facility]) Comment: NEGATIVE FOR INTRAEPITHELIAL LESION OR MALIGNANCY. CELLULAR CHANGES ASSOCIATED WITH INFLAMMATION ARE PRESENT. Specimen Adequacy Comment 022 6:07 PM CDT [facility] ([facility]) Comment: Satisfactory for evaluation. Endocervical and/or squamous metaplastic cells (endocervical component) are present. Performed by Comment 08/04/2021 6:07 PM CDT [facility] ([facility]) Comment:Moise Jolley, Skein Winder (ASCP) Comment . 08/04/2021 6:07 PM CDT [facility] ([facility]) Note Comment 08/04/2021 6:07 PM CDT [facility] ([facility]) Comment: The Pap smear is a screening test designed to aid in the detection of premalignant and malignant conditions of the uterine cervix. It is not a diagnostic procedure and should not be used as the sole means of detecting cervical cancer. Both false-positive and false-negative reports do occur. IGLBP CPT Code Automation Comment 08/04/2021 6:07 PM CDT [facility] ([facility]) Comment: This liquid based ThinPrep(R) pap test was screened with the use of an image guided system. Human papillomavirus Aptima Negative Negative 08/04/2021 6:07 PM CDT [facility] ([facility]) Comment: This nucleic acid amplification test detects fourteen high-risk HPV types (16,18,31,33,35,39,45,51,52,56,58,59,66,68) without differentiation. Pathology/Cytolo gy PART OF UTERINE CERVIX / Unknown Collection / Unknown 07/30/2021 11:03 AM CDT 07/30/2021 11:15 AM CDT Narrative [facility] ([facility]) - 08/04/2021 6:07 PM CDT Performed at: 01 - [facility] [id number] Chief Creative Officer: Mariaelena Hernandez MD, Phone: [phone] Performed at: 02 - [facility] [id number] Chief Creative Officer: Mariaelena Hernandez MD, Phone: [phone] Specimen Comment: No. of containers..01 ThinPrep Vial us Sav Murillo MD LAB - PATHOLOGY/CYTOLOGY ORDERAB LES Final Result [facility] ([facility]) [address] [place] [address] * HEPATITIS C ANTIBODY (05/20/2016 1:14 PM DRAWING SUPERVISOR) Hepatitis C Virus Antibody <0.1 0.0 - 0.9 s/co ratio [facility] ([facility]) Comment: Negative: < 0.8 Indeterminate: 0.8 - 0.9 Positive: > 0.9 The CDC recommends that a positive HCV antibody result be followed up with a HCV Nucleic Acid Amplification test (247241). Blood specimen (specimen) BLOOD SPECIMEN / Unknown 05/20/2016 1:14 PM DRAWING SUPERVISOR 05/20/2016 Narrative [facility] ([facility]) - 05/26/2016 3:13 PM DRAWING SUPERVISOR Performed at: [facility] [address] [place], [place] [id number] Chief Creative Officer: Ritesh Vasquez PhD, Phone: [phone] us [facility] Markos GILES LAB - CHEMISTRY ORDERABLES Ed ited Result - [facility] [address] [place] [address], [facility] from Last 3 Months or Most Recently Relevant to Health Maintenance Insurance [facility] Care Teams Rig Manager Relationship Specialty Start Date End Date Cesar Crowder Update Information PCP - General 12/01/17
[2024-11-22 11:06] VITALS: BP 137/94; PULSE 92; RESP 18; TEMP 36.7; O2SAT 99
[2024-11-22 11:24] LABS: BEDSIDEPREGUCG Positive (Negative)
[2024-11-22 11:27] LABS: Add Urine Microscopic? NO; Appearance Urine Clear (Clear); Glucose Urine UA Negative (Negative); Leukocyte Esterase Ur Negative LEU/UL (Negative); Nitrate Urine Negative (Negative); Specific Grav Ur 1.002 (1.001-1.035)
[2024-11-22 11:28] LABS: Hematocrit 43.4 % (37.0-47.0); Hemoglobin 14.1 g/dL (12.0-15.0); Immature Granulocyte Percent A 0.4 % (0-0.5); Lymphocytes Absolute Auto 2.06 K/mm3 (0.9-3.2); Mean Corpuscular HGB Conc 32.5 g/dl (32-36); Mean Corpuscular Hemoglobin 27.8 pg (26-34); Mean Corpuscular Volume 85.6 fl (80-100); Nucleated Red Blood Cells Absolute Auto 0.000 K/mm3 (0.0-0.012); Nucleated Red Blood Cells Perc 0.0 % (0.0-0.2); Platelet Count Result 337 k/mm3 (150-375); Red Blood Count 5.07 M/mm3 (4.2-5.4); White Blood Count 9.1 K/mm3 (4.5-10.0)
--- OUTSIDE RECORDS SUMMARY | 2024-11-22 11:29 | XMS_ITS | Clinical Summary ---
Author Organization [facility] Address [address] [place] [address] Care Team Providers Care Social Media Intern Name Role Phone Cesar Crowder MD Primary Care Provider [phone] Allergies Active Allergy Reactions Criticality Noted Date [...] (12/19/2019): Added automatically from request for surgery [id number] Acid reflux 12/19/2019 Overview (12/19/2019): Added automatically from request for surgery [id number] Symptomatic anemia 11/28/2019 Abnormal reflex 06/24/2016 Acute cystitis without hematuria 06/24/2016 Myalgia 05/18/2016 Encounters Date Type Department Care Team Description 10/27/2024 [facility] - [employer]. Like a Man. Message Enc [facility] Interventional [facility] [place] [address] [id number] Linda, [facility] Provider PAIN MANAGEMENT CLINIC from Last 3 [...] Comments Blood Pressure 135/98 03/07/2022 2:30 PM ACCESS SERVICE REPRESENTATIVE Pulse 91 03/07/2022 2:30 PM ACCESS SERVICE REPRESENTATIVE Temperature 36 C (96.8 F) 03/07/2022 12:23 PM ACCESS SERVICE REPRESENTATIVE Respiratory Rate 16 03/07/2022 2:30 PM ACCESS SERVICE REPRESENTATIVE Oxygen Saturation 95% 03/07/2022 2:30 PM ACCESS SERVICE REPRESENTATIVE Inhaled Oxygen Concentration - - Weight 113.4 kg (250 lb) 03/07/2022 12:23 PM ACCESS SERVICE REPRESENTATIVE Height 170.2 cm (5' 7) 03/07/2022 12:23 PM ACCESS SERVICE REPRESENTATIVE Body Mass Index 39.16 03/07/2022 12:23 PM ACCESS SERVICE REPRESENTATIVE Plan of Treatment Health Maintenance Due Date [...] Problems Recent Progress Patient-Stated? Author HOME TO [facility] No Cheri Lobato, RN Insurance [employer] Advance Directives * Full Code (Latest Code Status on File) Date Activated Date Inactivated Comments 11/28/2019 4:38 PM 11/29/2019 5:38 PM Care Teams Social Media Intern Relationship Specialty Start Date End Date Cesar Crowder MD PCP - General FAMILY PRACTICE 01/18/20
--- OUTSIDE RECORDS SUMMARY | 2024-11-22 11:29 | XMS_ITS | Encounter Summary ---
Author Organization [facility] Address [address] [facility] [place] [address] Care Team Providers Care Shuttle Car Operator Name Role Phone Cesar Crowder MD Primary Care Provider [phone] Encounter Details Date Type Department Care Team (Latest Contact Info) Description 10/27/[address] Message [facility] Interventional [place] [address] [id number] [facility] Social History Tobacco [...] Problems Recent Progress Patient-Stated? Author HOME TO [facility] No Cheri Lobato RN documented as of this encounter Visit Diagnoses Not on filedocumented in this encounter Care Teams Shuttle Car Operator Relationship Specialty Start Date End Date Cesar Crowder MD PCP - General FAMILY PRACTICE 01/18/20 documented as of this encounter
--- OUTSIDE RECORDS SUMMARY | 2024-11-22 11:29 | XMS_ITS | Clinical Summary ---
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
--- OUTSIDE RECORDS SUMMARY | 2024-11-22 11:29 | XMS_ITS | Clinical Summary ---
Author Organization [facility] Address [address] [place] [address] Care Team Providers Care Weapons System Instrument Mechanic Name Role Phone Cesar Crowder Primary Care Provider Unavailab le Source Comments [facility],non-owned Affiliates and Associated Physician Practices is amultiple site organization consisting of ambulatory clinics and hospital sitesin [place], [place], [place] and [place]. This disclosure is being madepursuant to the Care Everywhere program and may not contain all information available regarding this patient. Last updated 17.[facility] Allergies Active Allergy Reactions Criticality Noted [...] mouth DAILY. 05/31/19 18 Active ergocalciferol (DRISDOL) 73573 UNITS capsule Take 50,000 Units by mouth [...] on file Legal Sex Female 5:39 AM QUALITY MANAGER Gender Identity Not on file Sexual Orientation Not on file Last Filed Vital Signs Vital Sign Reading Time Taken Comments Blood Pressure 124/72 03/23/2022 2:41 PM QUALITY MANAGER Pulse 90 10/23/2021 12:00 PM CDT Temperature 36.1 C (96.9 F) 03/23/2022 2:41 PM QUALITY MANAGER Respiratory Rate 20 10/23/2021 12:0 0 PM CDT Oxygen Saturation 97% 10/23/2021 12: 00 PM CDT Inhaled Oxygen Concentration - - Weight 111.5 kg (245 lb 12.8 oz) 03/23/2022 2:41 PM QUALITY MANAGER Height 170.2 cm (5' 7) 03/23/2022 2:41 PM QUALITY MANAGER Body Mass Index 38.5 03/23/2022 2:41 PM QUALITY MANAGER Plan of Treatment Health Maintenance Due Date [...] this topic Medical Devices Implanted Type Area Gaming Host Device Identifier Shelf Expiration Date Model / Serial / Lot Sys Ureth Supp Adalberto Adv Trnvg Midurethral Implanted:Qty: 1 on 10/22/2021 by Karan Kennedy MD at [facility] N/A: Bladder CommonBond 10/15/2023 [id number] / / [id number] Description:MM Procedures Procedure Name Priority Date/Time Associated Diagnosis Comments PAP IG LB+HPV APTIMA Routine 07/30/2021 11:03 AM CDT Pelvic and perineal pain HEPATITIS C ANTIBODY Routine 05/20/2016 1:14 PM QUALITY MANAGER from Last 3 Months or Most Recently Relevant to Health Maintenance Results * PAP IG LB+HPV APTIMA (07/30/2021 11:03 AM CDT) Diagnosis Comment 08/04/2021 6:07 PM CDT [facility] ([facility]) Comment: NEGATIVE FOR INTRAEPITHELIAL LESION OR MALIGNANCY. CELLULAR CHANGES ASSOCIATED WITH INFLAMMATION ARE PRESENT. Specimen Adequacy Comment 022 6:07 PM CDT [facility] ([facility]) Comment: Satisfactory for evaluation. Endocervical and/or squamous metaplastic cells (endocervical component) are present. Performed by Comment 08/04/2021 6:07 PM CDT [facility] ([facility]) Comment:Moise Jolley, [place] (ASCP) Comment . 08/04/2021 6:07 PM CDT [facility] ([facility]) Note Comment 08/04/2021 6:07 PM CDT [facility] ([facility]) Comment: The Pap smear is a screening test designed to aid in the detection of premalignant and malignant conditions of the uterine cervix. It is not a diagnostic procedure and should not be used as the sole means of detecting cervical cancer. Both false-positive and false-negative reports do occur. IGLBP CPT Code Automation Comment 08/04/2021 6:07 PM CDT [facility] ([facility]) Comment: This liquid based ThinPrep(R) pap test was screened with the use of an image guided system. Human papillomavirus Aptima Negative Negative 08/04/2021 6:07 PM CDT [facility] ([facility]) Comment: This nucleic acid amplification test detects fourteen high-risk HPV types (16,18,31,33,35,39,45,51,52,56,58,59,66,68) without differentiation. Pathology/Cytolo gy PART OF UTERINE CERVIX / Unknown Collection / Unknown 07/30/2021 11:03 AM CDT 07/30/2021 11:15 AM CDT Narrative [facility] ([facility]) - 08/04/2021 6:07 PM CDT Performed at: 01 - [facility] [id number] Sex Crimes Detective: Mariaelena Hernandez MD, Phone: [phone] Performed at: 02 - [facility] [id number] Sex Crimes Detective: Mariaelena Hernandez MD, Phone: [phone] Specimen Comment: No. of containers..01 ThinPrep Vial us Sav Murillo MD LAB - PATHOLOGY/CYTOLOGY ORDERAB LES Final Result [facility] ([facility]) [address] [place] [address] * HEPATITIS C ANTIBODY (05/20/2016 1:14 PM QUALITY MANAGER) Hepatitis C Virus Antibody <0.1 0.0 - 0.9 s/co ratio [facility] ([facility]) Comment: Negative: < 0.8 Indeterminate: 0.8 - 0.9 Positive: > 0.9 The CDC recommends that a positive HCV antibody result be followed up with a HCV Nucleic Acid Amplification test (321288). Blood specimen (specimen) BLOOD SPECIMEN / Unknown 05/20/2016 1:14 PM QUALITY MANAGER 05/20/2016 Narrative [facility] ([facility]) - 05/26/2016 3:13 PM QUALITY MANAGER Performed at: [facility] [address] [place], [place] [id number] Sex Crimes Detective: Ritesh Vasquez PhD, Phone: [phone] us [facility] Markos GILES LAB - CHEMISTRY ORDERABLES Ed ited Result - [facility] [address] [place] [address], [facility] from Last 3 Months or Most Recently Relevant to Health Maintenance Insurance [facility] Care Teams Weapons System Instrument Mechanic Relationship Specialty Start Date End Date Cesar Crowder Update Information PCP - General 12/01/17
[2024-11-22 11:44] LABS: Alanine Aminotransferase 20 U/L (6-35); Albumin Level 4.8 g/dL (3.5-5.1); Alkaline Phosphatase 61 U/L (38-126); Anion Gap 9 mmol/L (4-12); Aspartate Amino Transferase 25 U/L (14-36); Bilirubin,Total 0.5 mg/dL (0.2-1.3); Blood Urea Nitrogen 9 mg/dL (7-17); Calcium 9.8 mg/dL (8.4-10.2); Carbon Dioxide 26 mmol/L (22-30); Chloride 102 mmol/L (98-107); Estimated CRCL calculation 74 ml/min; Estimated Glomerular Filt Rate 56; Glucose 100 mg/dL (65-110); Potassium 4.4 mmol/L (3.4-5.0); Sodium 137 mmol/L (137-145); Total Protein 8.2 g/dL (6.3-8.2)
[2024-11-22] MEDS: SODIUM CHLORIDE 0.9% IV 2,000 ML 999 ML IV CONT (12:13)
[2024-11-22] MEDS: ONDANSETRON INJ 4 MG/2 ML VIAL IV PUSH (12:13)
[2024-11-22] MEDS: HYDROmorphone HCL INJ (*CRX) 1 MG/ML SYR 0.5 MG IV PUSH (12:13)
[2024-11-22 12:16] LABS: SPREG INTERNAL CONTROL Positive; Serum Qual hCG Negative
[2024-11-22 13:00] VITALS: BP 142/82; PULSE 98; RESP 16; O2SAT 100
--- NOTE | 2024-11-22 14:13 | ED_ITS ---
HPI - General Adult General Chief complaint: Back Pain/Injury Stated complaint: L flank pain Time Seen by Provider: 11/22/24 11:19 History of Present Illness HPI narrative: This is a 31-year-old female presenting ED with a chief complaint right flank pain. Left flank pain started overnight. She describes it as a squeezing pain in left side radiates into her lower abdomen. Is severe in intensity and comes in waves. She has never had pain like this before no exacerbating alleviating factors. Associated with chills nausea but no fevers vomiting diarrhea chest pain difficulty breathing or urinary symptoms. Patient has a history complete hysterectomy. Ovaries are still . She has a history of kidney stones. Related Data Home Medications ?Medication ?Instructions ?Recorded ?Confirmed ?Last Taken ?Type metoprolol succinate 50 mg 50 mg PO DAILY 11/09/20 11/22/24 06/30/22 08:30 History tablet,extended release 24 hr lamotrigine 200 mg tablet 200 mg PO DAILY 03/02/24 11/22/24 Unknown History allopurinol 100 mg tablet 100 mg PO DAILY 09/20/24 11/22/24 Unknown History buspirone 5 mg tablet 5 mg PO BID 09/20/24 11/22/24 Unknown History ezetimibe 10 mg tablet 10 mg PO DAILY 09/20/24 11/22/24 Unknown History Allergies Allergy/AdvReac Type Severity Reaction Status Date / Time adhesive tape Allergy Mild RASH Verified 11/22/24 11:11 methohexital (Brevital) Allergy Unknown y Verified 11/22/24 11:11 Sulfa (Sulfonamide Allergy Rash Verified 11/22/24 11:11 Antibiotics) atropine AdvReac Unknown Nausea Verified 11/22/24 11:11 dexamethasone AdvReac Unknown Nausea Verified 11/22/24 11:11 meperidine AdvReac Unknown Nausea Verified 11/22/24 11:11 PMFSH Past Medical History Medical History Tiffany-Danlos disease Pulmonary embolism DDD (degenerative disc disease) SVT (supraventricular tachycardia) Tachyarrhythmia Marijuana abuse Obesity Chronic pain JOSE D (iron deficiency anemia) Colitis Regurgitation of food IBS (irritable bowel syndrome) GERD (gastroesophageal reflux disease) Early satiety Nausea and vomiting Upper abdominal pain Surgical History Surgical History S/P abdominal hysterectomy History of repair of rectocele Family History Family History Father Hypertension Family history of diabetes mellitus in first degree relative Mother Hypertension Family history of diabetes mellitus in first degree relative Social History Social History Years smoked: 18 Smoking status: Current some day smoker Tobacco type: cigarettes Alcohol intake: never Substance use: current Substance use type: marijuana Other substance usage details: before bed Last use: 2X weekly Living arrangements: with family Gender identity (if verbalized by the patient): Female Spiritual care concerns: No Exam 2 Narrative: APPEARANCE: No apparent distress. Head: atraumatic. EYES: EOMI, NOSE: Atraumatic NECK: Trachea midline RESPIRATORY: No increased rate of breathing clear to auscultation CARDIOVASCULAR: RRR, no peripheral ABDOMINAL: soft nontender no guarding rebound, left CVA tendernes MUSCULOSKELETAl: No obvious deformities NEURO: Alert. Moving 4/4 extremities SKIN:: Warm, dry. Normal color PSYCHIATRIC: Normal affect Course Vital Signs Vital signs: Vital Signs Temperature 98.1 F 11/22/24 11:06 Pulse Rate 92 11/22/24 11:06 Respiratory Rate 18 11/22/24 11:06 Blood Pressure 137/94 H 11/22/24 11:06 Pulse Oximetry 99 11/22/24 11:06 Oxygen Delivery Room Air 11/22/24 11:06 Temperature 98.1 F 11/22/24 11:06 Pulse Rate 65 11/22/24 15:15 Respiratory Rate 18 11/22/24 15:15 Blood Pressure 104/67 11/22/24 15:15 Pulse Oximetry 99 11/22/24 15:15 Oxygen Delivery Room Air 11/22/24 11:06 Medical Decision Making [facility] Narrative Medical decision making narrative: -Course: This is a 39-year-old female presenting with left flank pain radiating into her left lower abdomen. Her initial urine test was positive despite her having hysterectomy. Serum HCG and repeat urine were negative. Her 1st positive test was likely a false-positive/lab error. CT abdomen pelvis showed nonobstructing left kidney stones without any ureteral stones or hydronephrosis. Pelvic ultrasound unremarkable. Laboratory studies within normal limits. Urine not indicative infection. Clinically the patient has symptoms of a kidney stone. Whether she has already passed it and is having resulting ureteral spasm or if it was missed on the CT is unclear. She will be treated with medications for kidney stone given Urology follow-up. Given return precautions for fevers severe pain or urinary symptoms. -DDX includes but is not limited to: Kidney stone, ureteral spasm, UTI, muscle spasm Vital Signs Vital Signs: Vital Signs Temperature 98.1 F 11/22/24 11:06 Pulse Rate 92 11/22/24 11:06 Respiratory Rate 18 11/22/24 11:06 Blood Pressure 137/94 H 11/22/24 11:06 Pulse Oximetry 99 11/22/24 11:06 Oxygen Delivery Room Air 11/22/24 11:06 Temperature 98.1 F 11/22/24 11:06 Pulse Rate 65 11/22/24 15:15 Respiratory Rate 18 11/22/24 15:15 Blood Pressure 104/67 11/22/24 15:15 Pulse Oximetry 99 11/22/24 15:15 Oxygen Delivery Room Air 11/22/24 11:06 Lab Data 11/22/24 11:16 11/22/24 11:16 Labs: Lab Results 11/22/24 11/22/24 11/22/24 Range/Units 11:16 11:17 11:22 WBC 9.1 (4.5-10.0) K/mm3 RBC 5.07 (4.2-5.4) M/mm3 Hgb 14.1 (12.0-15.0) g/dL Hct 43.4 (37.0-47.0) % MCV 85.6 (80-100) fl MCH 27.8 (26-34) pg MCHC 32.5 (32-36) g/dl RDW 14.3 (11.5-14.5) % Plt Count 337 (150-375) k/mm3 MPV 9.7 (7.4-10.4) fl Immature Gran % (Auto) 0.4 (0-0.5) % Neut % (Auto) 68.5 (45.5-73.1) % Lymph % (Auto) 22.7 (18.3-44.2) % [place] % (Auto) 6.3 (2.6-8.5) % Eos % (Auto) 1.4 (0-4.4) % Baso % (Auto) 0.7 (0.2-1.2) % Lymph # (Auto) 2.06 (0.9-3.2) K/mm3 [place] # (Auto) 0.6 (0.1-0.6) K/mm3 Eos # (Auto) 0.1 (0-0.3) K/mm3 Baso # (Auto) 0.1 (0.0-0.1) K/mm3 Abs Immat Gran (auto) 0.04 H (0.00-0.031) K/mm3 Absolute Neuts (auto) 6.2 (1.3-6.7) K/mm3 Absolute Nucleated RBC 0.000 (0.0-0.012) K/mm3 Nucleated RBC % 0.0 (0.0-0.2) % Sodium 137 (137-145) mmol/L Potassium 4.4 (3.4-5.0) mmol/L Chloride 102 (98-107) mmol/L Carbon Dioxide 26 (22-30) mmol/L Anion Gap 9 (4-12) mmol/L BUN 9 (7-17) mg/dL Creatinine 1.10 H (0.7-1.0) mg/dL Estim Creat Clear Calc 74 ml/min Estimated GFR 56 L (59 - ) Glucose 100 (65-110) mg/dL Calcium 9.8 (8.4-10.2) mg/dL Total Bilirubin 0.5 (0.2-1.3) mg/dL AST 25 (14-36) U/L ALT 20 (6-35) U/L Alkaline Phosphatase 61 (38-126) U/L Total Protein 8.2 (6.3-8.2) g/dL Albumin 4.8 (3.5-5.1) g/dL Serum HCG, Qual Urine Color Yellow (Yellow) Urine Appearance Clear (Clear) Urine pH 7.0 (5.0-9.0) Ur Specific [place] 1.002 (1.001-1.035) Urine Protein Negative (Negative) mg/dL Urine Glucose (UA) Negative (Negative) mg/dL Urine Ketones Negative (Negative) mg/dL Ur Blood (Man) Negative (Negative) Urine Nitrate Negative (Negative) Urine Bilirubin Negative (Negative) Urine Urobilinogen 0.2 (<2.0) mg/dL Leukocyte Esterase Rfl Negative (Negative) DANA/UL POC Urine HCG, Qual Positive (Negative) 11/22/24 11/22/24 Range/Units 11:46 14:43 WBC (4.5-10.0) K/mm3 RBC (4.2-5.4) M/mm3 Hgb (12.0-15.0) g/dL Hct (37.0-47.0) % MCV (80-100) fl MCH (26-34) pg MCHC (32-36) g/dl RDW (11.5-14.5) % Plt Count (150-375) k/mm3 MPV (7.4-10.4) fl Immature Gran % (Auto) (0-0.5) % Neut % (Auto) (45.5-73.1) % Lymph % (Auto) (18.3-44.2) % [place] % (Auto) (2.6-8.5) % Eos % (Auto) (0-4.4) % Baso % (Auto) (0.2-1.2) % Lymph # (Auto) (0.9-3.2) K/mm3 [place] # (Auto) (0.1-0.6) K/mm3 Eos # (Auto) (0-0.3) K/mm3 Baso # (Auto) (0.0-0.1) K/mm3 Abs Immat Gran (auto) (0.00-0.031) K/mm3 Absolute Neuts (auto) (1.3-6.7) K/mm3 Absolute Nucleated RBC (0.0-0.012) K/mm3 Nucleated RBC % (0.0-0.2) % Sodium (137-145) mmol/L Potassium (3.4-5.0) mmol/L Chloride (98-107) mmol/L Carbon Dioxide (22-30) mmol/L Anion Gap (4-12) mmol/L BUN (7-17) mg/dL Creatinine (0.7-1.0) mg/dL Estim Creat Clear Calc ml/min Estimated GFR (59 - ) Glucose (65-110) mg/dL Calcium (8.4-10.2) mg/dL Total Bilirubin (0.2-1.3) mg/dL AST (14-36) U/L ALT (6-35) U/L Alkaline Phosphatase (38-126) U/L Total Protein (6.3-8.2) g/dL Albumin (3.5-5.1) g/dL Serum HCG, Qual Negative Urine Color (Yellow) Urine Appearance (Clear) Urine pH (5.0-9.0) Ur Specific [place] (1.001-1.035) Urine Protein (Negative) mg/dL Urine Glucose (UA) (Negative) mg/dL Urine Ketones (Negative) mg/dL Ur Blood (Man) (Negative) Urine Nitrate (Negative) Urine Bilirubin (Negative) Urine Urobilinogen (<2.0) mg/dL Leukocyte Esterase Rfl (Negative) ADNA/UL POC Urine HCG, Qual Negative (Negative) Discharge Plan Discharge Clinical Impression: Acute flank pain Patient Disposition: Home Condition: Stable Instructions: Antibiotic Form, Flank Pain (ED) Additional Instructions: You were seen in the emergency department for flank pain. Your CT did not show a kidney stone but clinically your presenting with classic symptoms.. Please use Motrin/Tylenol for pain. Use oxycodone for breakthrough pain. Use Zofran for nausea. Please follow-up with the urologist listed below for further management. Please return if you develop severe pain, fevers or intractable nausea and vomiting. Patient Language: Upper Sorbian Prescriptions: New ibuprofen 800 mg tablet 800 mg PO TID PRN (Reason: pain) 7 Days Qty: 21 0RF acetaminophen 500 mg tablet 1,000 mg PO TID PRN (Reason: ysabel) 7 Days Qty: 42 0RF tamsulosin [Flomax] 0.4 mg capsule 0.4 mg PO DAILY Qty: 30 0RF ondansetron 4 mg tablet,disintegrating 4 mg PO Q8H PRN (Reason: nausea and vomiting) Qty: 30 0RF oxycodone 5 mg tablet 5 mg PO Q4H PRN (Reason: pain) Qty: 6 0RF No Action metoprolol succinate 50 mg tablet extended release 24 hr 50 mg PO DAILY allopurinol 100 mg tablet 100 mg PO DAILY buspirone 5 mg tablet 5 mg PO BID ezetimibe 10 mg tablet 10 mg PO DAILY pantoprazole 40 mg tablet,delayed release (DR/EC) 40 mg PO BID Qty: 60 3RF metoclopramide HCl 10 mg tablet 10 mg PO ACHS Qty: 180 3RF lamotrigine 200 mg tablet 200 mg PO DAILY Linzess 72 mcg capsule 72 mcg PO DAILY Qty: 30 3RF prucalopride [Motegrity] 2 mg tablet 2 mg PO DAILY Qty: 30 3RF Follow-up/Referrals: Enrike Carranza MD [Physician] - 3 Days (Flank pain ) Vel,MD Cesar [Primary Care Provider] -
[2024-11-22] MEDS: KETOROLAC 15 MG/ML VIAL (*BKC) IV PUSH (14:39)
[2024-11-22] MEDS: ACETAMINOPHEN 500 MG TABLET 1000 MG PO (14:40)
[2024-11-22 14:47] LABS: BEDSIDEPREGUCG Negative (Negative)
[2024-11-22 15:15] VITALS: BP 104/67; PULSE 65; RESP 18; O2SAT 99
== END 2024-11-22 16:59 | disposition home or self-care (01) ==
PROVIDERS: Emergency Provider Emergency Medicine; PCP Family Medicine
DX: R10.32 Left lower quadrant pain (principal); Q79.60 Ehlers-Danlos syndrome, unspecified; Z86.711 Personal history of pulmonary embolism; K21.9 Gastro-esophageal reflux disease without esophagitis
CPT/HCPCS: 36415; 74176; 76830; 76856; 80053; 81003; 81025; 84703; 85025; 96361; 96374; 96375; 99284; A9270; J1171; J1885; J2405; J7030

== ENCOUNTER 2024-11-24 07:07 | Day surgery (SDC) | payer OTHER, SELFPAY ==
[2024-11-09 13:48] VITALS: BMI 35.4
--- OUTSIDE RECORDS SUMMARY | 2024-11-24 07:09 | XMS_ITS | Clinical Summary ---
Author Organization [facility] Address [address] [place] [address] Care Team Providers Care Co Op Name Role Phone Cesar Crowder MD Primary Care Provider [phone] Allergies Active Allergy Reactions Criticality Noted Date [...] (12/19/2019): Added automatically from request for surgery [id number] Acid reflux 12/19/2019 Overview (12/19/2019): Added automatically from request for surgery [id number] Symptomatic anemia 11/28/2019 Abnormal reflex 06/24/2016 Acute cystitis without hematuria 06/24/2016 Myalgia 05/18/2016 Encounters Date Type Department Care Team Description 10/27/2024 Zyncd Message Enc [facility] [place] [address] [id number] Linda, [facility] Provider PAIN [facility]NAGEMENT CLINIC from Last 3 [...] Comments Blood Pressure 135/98 03/07/2022 2:30 PM STEAM TRAP MAN Pulse 91 03/07/2022 2:30 PM STEAM TRAP MAN Temperature 36 C (96.8 F) 03/07/2022 12:23 PM STEAM TRAP MAN Respiratory Rate 16 03/07/2022 2:30 PM STEAM TRAP MAN Oxygen Saturation 95% 03/07/2022 2:30 PM STEAM TRAP MAN Inhaled Oxygen Concentration - - Weight 113.4 kg (250 lb) 03/07/2022 12:23 PM STEAM TRAP MAN Height 170.2 cm (5' 7) 03/07/2022 12:23 PM STEAM TRAP MAN Body Mass Index 39.16 03/07/2022 12:23 PM STEAM TRAP MAN Plan of Treatment Health Maintenance Due Date [...] Problems Recent Progress Patient-Stated? Author HOME TO [facility] No Cheri Lobato, RN Insurance [employer] Advance Directives * Full Code (Latest Code Status on File) Date Activated Date Inactivated Comments 11/28/2019 4:38 PM 11/29/2019 5:38 PM Care Teams Co Op Relationship Specialty Start Date End Date Cesar Crowder MD PCP - General FAMILY PRACTICE 01/18/20
--- OUTSIDE RECORDS SUMMARY | 2024-11-24 07:09 | XMS_ITS | Clinical Summary ---
Author Organization [facility] Address [address] [place] [address] Care Team Providers Care Medical Lab Technologist Name Role Phone Cesar Crowder Primary Care Provider Unavailab le Source Comments [facility],non-owned Affiliates and Associated Physician Practices is amultiple site organization consisting of ambulatory clinics and hospital sitesin [place], [place], [place] and [place]. This disclosure is being madepursuant to the Care Everywhere program and may not contain all information available regarding this patient. Last updated 17.[facility] Allergies Active Allergy Reactions Criticality Noted [...] mouth DAILY. 05/31/19 18 Active ergocalciferol (DRISDOL) 77561 UNITS capsule Take 50,000 Units by mouth [...] on file Legal Sex Female 5:39 AM TANKER SERVICEMAN Gender Identity Not on file Sexual Orientation Not on file Last Filed Vital Signs Vital Sign Reading Time Taken Comments Blood Pressure 124/72 03/23/2022 2:41 PM TANKER SERVICEMAN Pulse 90 10/23/2021 12:00 PM CDT Temperature 36.1 C (96.9 F) 03/23/2022 2:41 PM TANKER SERVICEMAN Respiratory Rate 20 10/23/2021 12:0 0 PM CDT Oxygen Saturation 97% 10/23/2021 12: 00 PM CDT Inhaled Oxygen Concentration - - Weight 111.5 kg (245 lb 12.8 oz) 03/23/2022 2:41 PM TANKER SERVICEMAN Height 170.2 cm (5' 7) 03/23/2022 2:41 PM TANKER SERVICEMAN Body Mass Index 38.5 03/23/2022 2:41 PM TANKER SERVICEMAN Plan of Treatment Health Maintenance Due Date [...] this topic Medical Devices Implanted Type Area Medical Assistant Secretary Device Identifier Shelf Expiration Date Model / Serial / Lot Sys Ureth Supp Adalberto Adv Trnvg Midurethral Implanted:Qty: 1 on 10/22/2021 by Karan Kennedy MD at [facility] N/A: Bladder Fastacash 10/15/2023 [id number] / / [id number] Description:MM Procedures Procedure Name Priority Date/Time Associated Diagnosis Comments PAP IG LB+HPV APTIMA Routine 07/30/2021 11:03 AM CDT Pelvic and perineal pain HEPATITIS C ANTIBODY Routine 05/20/2016 1:14 PM TANKER SERVICEMAN from Last 3 Months or Most Recently Relevant to Health Maintenance Results * PAP IG LB+HPV APTIMA (07/30/2021 11:03 AM CDT) Diagnosis Comment 08/04/2021 6:07 PM CDT [facility] ([facility]) Comment: NEGATIVE FOR INTRAEPITHELIAL LESION OR MALIGNANCY. CELLULAR CHANGES ASSOCIATED WITH INFLAMMATION ARE PRESENT. Specimen Adequacy Comment 022 6:07 PM CDT [facility] ([facility]) Comment: Satisfactory for evaluation. Endocervical and/or squamous metaplastic cells (endocervical component) are present. Performed by Comment 08/04/2021 6:07 PM CDT [facility] ([facility]) Comment:Moise Jolley, Salary And Wage Administrator (ASCP) Comment . 08/04/2021 6:07 PM CDT [facility] ([facility]) Note Comment 08/04/2021 6:07 PM CDT [facility] ([facility]) Comment: The Pap smear is a screening test designed to aid in the detection of premalignant and malignant conditions of the uterine cervix. It is not a diagnostic procedure and should not be used as the sole means of detecting cervical cancer. Both false-positive and false-negative reports do occur. IGLBP CPT Code Automation Comment 08/04/2021 6:07 PM CDT [facility] ([facility]) Comment: This liquid based ThinPrep(R) pap test was screened with the use of an image guided system. Human papillomavirus Aptima Negative Negative 08/04/2021 6:07 PM CDT [facility] ([facility]) Comment: This nucleic acid amplification test detects fourteen high-risk HPV types (16,18,31,33,35,39,45,51,52,56,58,59,66,68) without differentiation. Pathology/Cytolo gy PART OF UTERINE CERVIX / Unknown Collection / Unknown 07/30/2021 11:03 AM CDT 07/30/2021 11:15 AM CDT Narrative [facility] ([facility]) - 08/04/2021 6:07 PM CDT Performed at: 01 - [facility] [id number] [employer]el Oven Tender: Mariaelena Hernandez MD, Phone: [phone] Performed at: 02 - [facility] [id number] [employer] Tender: Mariaelena Hernandez MD, Phone: [phone] Specimen Comment: No. of containers..01 ThinPrep Vial us Sav Murillo MD LAB - PATHOLOGY/CYTOLOGY ORDERAB LES Final Result [facility] ([facility]) [address] [place] [address] * HEPATITIS C ANTIBODY (05/20/2016 1:14 PM TANKER SERVICEMAN) Hepatitis C Virus Antibody <0.1 0.0 - 0.9 s/co ratio [facility] ([facility]) Comment: Negative: < 0.8 Indeterminate: 0.8 - 0.9 Positive: > 0.9 The CDC recommends that a positive HCV antibody result be followed up with a HCV Nucleic Acid Amplification test (845192). Blood specimen (specimen) BLOOD SPECIMEN / Unknown 05/20/2016 1:14 PM TANKER SERVICEMAN 05/20/2016 Narrative [facility] ([facility]) - 05/26/2016 3:13 PM TANKER SERVICEMAN Performed at: [facility] [address] [place], [place] [id number] [employer] Tender: Ritesh Vasquez PhD, Phone: [phone] us [facility] Markos [facility] - CHEMISTRY ORDERABLES Ed ited Result - Final [facility]) [address] [place] [address], [facility] from Last 3 Months or Most Recently Relevant to Health Maintenance Insurance [facility] Care Teams Medical Lab Technologist Relationship Specialty Start Date End Date Cesar Crowder Update Information PCP - General 12/01/17
--- OUTSIDE RECORDS SUMMARY | 2024-11-24 07:10 | XMS_ITS | Clinical Summary ---
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
--- OUTSIDE RECORDS SUMMARY | 2024-11-24 07:10 | XMS_ITS | Encounter Summary ---
Author Organization [facility] Address [facility] [place] [address] Care Team Providers Care Supervisor Grove Name Role Phone Cesar Crowder MD Primary Care Provider [phone] Encounter Details Date Type Department Care Team (Latest Contact Info) Description 10/27/2024 Fiesta Frog Message [facility] Inter[facility] [place] [address] [id number] [facility] Social [...] Problems Recent Progress Patient-Stated? Author HOME TO [facility] No Cheri Lobato RN documented as of this encounter Visit Diagnoses Not on filedocumented in this encounter Care Teams Supervisor Grove Relationship Specialty Start Date End Date Cesar Crowder MD PCP - General FAMILY PRACTICE 01/18/20 documented as of this encounter
[2024-11-24 12:19] VITALS: BP 142/95; PULSE 81; RESP 16; TEMP 36.3; O2SAT 99; BMI 34.3
[2024-11-24] MEDS: LACTATED RINGERS 1,000 ML 150 ML IV CONT (12:29)
--- NOTE | 2024-11-24 13:02 | WPDANESEPPF ---
Anes - Initial Pre Proc Eval Procedure: Operation Date: 11/24/24 13:15 Proposed Procedures p Esophagogastroduodenoscopy - Vinay Wu MD Date/Time: 11/24/24 13:02 Surgeon: Vinay Wu MD Pre Op Diagnosis: Nausea with vomiting, unspecified, GERD Patient Data Age: 39 Gender: F Height: 1.7 m Weight: 99.5 kg Last Vital Signs Temp 36.3 C L 11/24/24 12:19 Pulse 81 11/24/24 12:19 Resp 16 11/24/24 12:19 BP 142/95 H 11/24/24 12:19 Pulse Ox 99 11/24/24 12:19 O2 Del Method Room Air 11/24/24 12:19 Allergies Allergy/AdvReac Type Severity Reaction Status Date / Time adhesive tape Allergy Mild RASH Verified 11/24/24 12:17 methohexital (Brevital) Allergy Unknown y Verified 11/24/24 12:17 Sulfa (Sulfonamide Allergy Rash Verified 11/24/24 12:17 Antibiotics) atropine AdvReac Unknown Nausea Verified 11/24/24 12:17 dexamethasone AdvReac Unknown Nausea Verified 11/24/24 12:17 meperidine AdvReac Unknown Nausea Verified 11/24/24 12:17 Home Medications ?Medication ?Instructions ?Recorded ?Confirmed ?Type metoprolol succinate 50 mg 50 mg PO DAILY 11/09/20 11/24/24 History tablet,extended release 24 hr lamotrigine 200 mg tablet 200 mg PO DAILY 03/02/24 11/24/24 History allopurinol 100 mg tablet 100 mg PO DAILY 09/20/24 11/24/24 History buspirone 5 mg tablet 5 mg PO BID 09/20/24 11/24/24 History ezetimibe 10 mg tablet 10 mg PO DAILY 09/20/24 11/24/24 History metoclopramide HCl 10 mg tablet 10 mg PO ACHS #180 tabs 09/20/24 11/24/24 Rx pantoprazole 40 mg tablet,delayed 40 mg PO BID #60 tabs 09/20/24 11/24/24 Rx release linaclotide 72 mcg capsule 72 mcg PO DAILY #30 caps 11/17/24 11/24/24 Rx (Linzess) acetaminophen 500 mg tablet 1,000 mg (2 x 500 mg) PO TID PRN 11/22/24 11/24/24 Rx ysabel 7 days #42 tabs ibuprofen 800 mg tablet 800 mg PO TID PRN pain 7 days #21 11/22/24 11/24/24 Rx tabs ondansetron 4 mg disintegrating 4 mg PO Q8H PRN nausea and 11/22/24 11/24/24 Rx tablet vomiting #30 tabs oxycodone 5 mg tablet 5 mg PO Q4H PRN pain #6 tabs 11/22/24 11/24/24 Rx prucalopride 2 mg tablet 2 mg PO DAILY #30 tabs 11/22/24 11/24/24 Rx (Motegrity) tamsulosin 0.4 mg capsule (Flomax) 0.4 mg PO DAILY #30 caps 11/22/24 11/24/24 Rx HCG: negative Patient hx anesthesia problems: none Family hx anesthesia problems: none Results Review: All pre-operative results and documents have been reviewed as part of the pre-operative evaluation. [facility] Past Medical History Medical History Tiffany-Danlos disease Pulmonary embolism DDD (degenerative disc disease) SVT (supraventricular tachycardia) Tachyarrhythmia Marijuana abuse Obesity Chronic pain JOSE D (iron deficiency anemia) Colitis Regurgitation of food IBS (irritable bowel syndrome) GERD (gastroesophageal reflux disease) Early satiety Nausea and vomiting Upper abdominal pain Surgical History Surgical History S/P abdominal hysterectomy History of repair of rectocele Family History Family History Father Hypertension Family history of diabetes mellitus in first degree relative Mother Hypertension Family history of diabetes mellitus in first degree relative Social History Social History Years smoked: 18 Smoking status: Current every day smoker Tobacco type: cigarettes Alcohol intake: never Substance use: current Substance use type: marijuana Other substance usage details: before bed Last use: 2X weekly Living arrangements: with family Gender identity (if verbalized by the patient): Female Spiritual care concerns: No Anes - Eval Final PreProcedure Day of Procedure 11/24/24 13:02 Patient weight: obese Heart: regular rate and rhythm Lungs: clear to auscultation Airway: Mallampati scale class II Neurological: alert and oriented Last oral intake: >/= 8 hours ASA classification: III Emergent: no Anesthetic plan: proceed Anesthesia type and monitoring: general GIVS and standard monitoring Results Review: All pre-operative results and documents have been reviewed as part of the pre-operative evaluation. Informed Consent: The patient's anesthetic plan and its attendant risks and benefits were discussed with the patient/family/POA. Questions were solicited and answers provided to the satisfaction of the patient/family/POA.
--- NOTE | 2024-11-24 13:02 | PM.HPGS ---
History of Present Illness History of Present Illness Consent: Risks, benefits, and alternatives have been discussed and questions answered. Patient agrees to proceed with procedure. Chief complaint: Nausea with vomiting, unspecified, GERD Narrative: Nancy Liu is a 39 year old female with chronic nausea and gastroparesis confirmed by abnormal GES, recent CT a/p no major findings, had EGD 2022 with no celiac, no h pylori. Here to have another EGD Review of Systems Review of Systems: All systems reviewed & are unremarkable except as noted in HPI and below PMFSH Past Medical History Medical History Tiffany-Danlos disease Pulmonary embolism DDD (degenerative disc disease) SVT (supraventricular tachycardia) Tachyarrhythmia Marijuana abuse Obesity Chronic pain JOSE D (iron deficiency anemia) Colitis Regurgitation of food IBS (irritable bowel syndrome) GERD (gastroesophageal reflux disease) Early satiety Nausea and vomiting Upper abdominal pain Surgical History Surgical History S/P abdominal hysterectomy History of repair of rectocele Family History Family History Father Hypertension Family history of diabetes mellitus in first degree relative Mother Hypertension Family history of diabetes mellitus in first degree relative Social History Social History Years smoked: 18 Smoking status: Current every day smoker Tobacco type: cigarettes Alcohol intake: never Substance use: current Substance use type: marijuana Other substance usage details: before bed Last use: 2X weekly Living arrangements: with family Gender identity (if verbalized by the patient): Female Spiritual care concerns: No Meds Home Medications and Allergies Home Medications ?Medication ?Instructions ?Recorded ?Confirmed ?Type metoprolol succinate 50 mg 50 mg PO DAILY 11/09/20 11/24/24 History tablet,extended release 24 hr lamotrigine 200 mg tablet 200 mg PO DAILY 03/02/24 11/24/24 History allopurinol 100 mg tablet 100 mg PO DAILY 09/20/24 11/24/24 History buspirone 5 mg tablet 5 mg PO BID 09/20/24 11/24/24 History ezetimibe 10 mg tablet 10 mg PO DAILY 09/20/24 11/24/24 History metoclopramide HCl 10 mg tablet 10 mg PO ACHS #180 tabs 09/20/24 11/24/24 Rx pantoprazole 40 mg tablet,delayed 40 mg PO BID #60 tabs 09/20/24 11/24/24 Rx release linaclotide 72 mcg capsule 72 mcg PO DAILY #30 caps 11/17/24 11/24/24 Rx (Linzess) acetaminophen 500 mg tablet 1,000 mg (2 x 500 mg) PO TID PRN 11/22/24 11/24/24 Rx ysabel 7 days #42 tabs ibuprofen 800 mg tablet 800 mg PO TID PRN pain 7 days #21 11/22/24 11/24/24 Rx tabs ondansetron 4 mg disintegrating 4 mg PO Q8H PRN nausea and 11/22/24 11/24/24 Rx tablet vomiting #30 tabs oxycodone 5 mg tablet 5 mg PO Q4H PRN pain #6 tabs 11/22/24 11/24/24 Rx prucalopride 2 mg tablet 2 mg PO DAILY #30 tabs 11/22/24 11/24/24 Rx (Motegrity) tamsulosin 0.4 mg capsule (Flomax) 0.4 mg PO DAILY #30 caps 11/22/24 11/24/24 Rx Allergies Allergy/AdvReac Type Severity Reaction Status Date / Time adhesive tape Allergy Mild RASH Verified 11/24/24 12:17 methohexital (Brevital) Allergy Unknown y Verified 11/24/24 12:17 Sulfa (Sulfonamide Allergy Rash Verified 11/24/24 12:17 Antibiotics) atropine AdvReac Unknown Nausea Verified 11/24/24 12:17 dexamethasone AdvReac Unknown Nausea Verified 11/24/24 12:17 meperidine AdvReac Unknown Nausea Verified 11/24/24 12:17 Vital Signs Vital Signs - 24 hr 11/24/24 12:19 Temperature 97.3 F L Pulse Rate 81 Respiratory Rate 16 Blood Pressure 142/95 H Pulse Oximetry 99 Oxygen Delivery Room Air Exam Const: General: comfortable and no acute distress HENMT: Face/Nose/Sinus: Normal nares present Eyes: General: appearance normal, both eyes and all related structures Neck: Neck: no JVD Resp: Auscultation: clear to auscultation bilaterally Cardio: Rate: regular rate Rhythm: regular rhythm GI: Inspection: non-distended GI Palp: Yes Soft to palpation Skin: General skin exam: normal color Neuro: Speech: normal speech Extrem: General: normal to inspection Psych: Mental Status: mental status grossly normal Assessment and Plan Assessment and plan (1) Nausea and vomiting: Code(s): R11.2 - Nausea with vomiting, unspecified Status: Acute Assessment and Plan: egd symptoms probably aggravated by gastroparesis (2) Gastroparesis: Code(s): K31.84 - Gastroparesis Status: Acute
[2024-11-24 13:13] VITALS: BP 142/82; PULSE 57; RESP 20; O2SAT 99
[2024-11-24 13:23] VITALS: BP 148/89; PULSE 61; RESP 22; O2SAT 97
[2024-11-24 13:33] VITALS: BP 147/90; PULSE 66; RESP 15; O2SAT 100
== END 2024-11-24 13:44 | disposition home or self-care (01) ==
PROVIDERS: PCP Family Medicine; Referring Provider Nurse Practitioner; Visit Provider Internal Medicine Gastroenterology
PROC: 0DJ08ZZ Inspection of Upper Intestinal Tract, Via Natural or Artificial Opening Endoscopic (ICD-10-PCS; CPT 43235; principal; 2024-11-24 13:15)
DX: K31.7 Polyp of stomach and duodenum (principal); K21.9 Gastro-esophageal reflux disease without esophagitis; D50.9 Iron deficiency anemia, unspecified; K58.9 Irritable bowel syndrome, unspecified; Q79.60 Ehlers-Danlos syndrome, unspecified; I47.10 Supraventricular tachycardia, unspecified; G89.29 Other chronic pain; M51.9 Unspecified thoracic, thoracolumbar and lumbosacral intervertebral disc disorder; F17.210 Nicotine dependence, cigarettes, uncomplicated; F12.90 Cannabis use, unspecified, uncomplicated; E66.9 Obesity, unspecified; Z68.34 Body mass index [BMI] 34.0-34.9, adult; Z79.1 Long term (current) use of non-steroidal anti-inflammatories (NSAID); Z79.891 Long term (current) use of opiate analgesic; Z98.890 Other specified postprocedural states; Z86.711 Personal history of pulmonary embolism; Z87.19 Personal history of other diseases of the digestive system
CPT/HCPCS: 43235; J2704; J7120